=== PATIENT | male | born 1950 | race American Indian/Alaskan Native ===

== ENCOUNTER 2016-09-15 06:28 | Day surgery (SDC) | payer OTHER ==
[~2016-09-15 06:28] MED LIST: TETRACAINE 0.5% OD PRN
--- NOTE | 2016-09-15 07:22 | Anesthesia Day of Surgery ---
Anesthesia Day of Surgery - Day of Surgery Patient Examined: Yes Patient H&P Reviewed: Yes Patient is NPO: Yes
--- NOTE | 2016-09-15 07:23 | Anesthesia Consultation ---
Anesthesia Consult and Med Hx Date of service: 09/15/16 - Airway Anesthetic Teeth Evaluation: Dentures (upper), Partials (lower) ROM Head & Neck: Adequate Mental/Hyoid Distance: Adequate Mallampati Class: Class II Intubation Access Assessment: Probably Good - Pulmonary Exam CTA: Yes - Cardiac Exam Cardiac Exam: RRR - Pre-Operative Health Status ASA Pre-Surgery Classification: ASA3 Proposed Anesthetic Plan: MAC - Pulmonary Hx Smoking: Yes (former, quit in 1972) - Cardiovascular System Hx Hypertension: Yes Hx Peripheral Vascular Disease: Yes - Central Nervous System Hx Seizures: No CVA: No Hx Psychiatric Problems: No - Endocrine Hx Renal Disease: No Hx Liver Disease: No Hx Non-Insulin Dependent Diabetes: Yes Hx Thyroid Disease: No - Other Systems Hx Cancer: No
[2016-09-15] MEDS: MYDRIACYL OD SCH ×3 (07:55→08:05)
[2016-09-15] MEDS: VIGAMOX OD SCH ×3 (07:55→08:05)
[2016-09-15] MEDS: AK-Dilate OD SCH ×3 (07:55→08:05)
[2016-09-15] MEDS ORDERED: SUBLIMAZE ONE (08:17)
[2016-09-15] MEDS ORDERED: VERSED ONE (08:17)
--- NOTE | 2016-09-15 09:16 | Operative Report ---
Operative Report Operative Report: PATIENT'S NAME: DATE OF : DATE OF SURGERY: 09/15/2016 PREOPERATIVE DIAGNOSIS: Cataract right eye POSTOPERATIVE DIAGNOSIS: Same OPERATIVE PROCEDURE: Phacoemulsification with intraocular lens implantation, right eye SURGEON: Laura Weber M.D. 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 An Transportation Supervisor was utilized to regulate the intravenous sedation of the patient so the patient was cooperative yet not asleep in order for the patient to successfully maintain fixation of the eye on the operating light of the microscope. COMPLICATIONS: No surgical complications No blood loss. ALLERGIES: No known drug allergies PROGNOSIS: Excellent INDICATIONS FOR SURGERY: The patient is undergoing surgery in the hopes of eliminating or improving these visual difficulties. PROCEDURE: After arriving at the surgery center, the patient was given topical anesthetic and dilating drops, as noted in the record. The patient was then taken into the operating room and given more anesthetic drops. The eyelids , lashes, and lid margins were scrubbed with Betadine solution, and the patient was draped. The Nurse Transportation Supervisor administered IV sedation and monitored the patient during the procedure. The eye was then fixated with a 0.12, and a stab incision was made in the peripheral clear cornea into the anterior chamber. This was made on my left side. Viscoelastic was next used to fill the anterior chamber. The eye was once again fixated with the 0.12 forceps and a keratome was used make an incision in clear cornea peripherally on my right hand side temporally. The capsule forceps were used to open the central anterior capsule and then make a continuous round capsulotomy. Hydrodissection was carried out utilizing a cannula and balanced salt solution to delineate the cortical material from the capsule and the nucleus from the cortical material. The phaco tip was introduced into the eye and used to remove the anterior cortical material in the area of the capsulotomy. Then the phaco tip was buried into the nucleus, and a chopping instrument was introduced into the eye and used to provide countertraction in the nucleus between this instrument and the phaco tip fracturing the nucleus. This procedure was repeated multiple times, providing multiple small segments of the lens, and then the phaco tip was used to remove each of these segments. An I/A tip was then used to remove the remaining cortex. The anterior chamber was refilled with viscoelastic. An one-piece, acrylic intraocular lens was then placed into an inserting cartridge. The tip of the inserting cartridge was introduced into the keratome incision and into the anterior chamber. The implant was gently advanced through the cartridge and into the eye, where it unfolded, and both haptics were placed in the capsular bag, where it centered nicely and appeared to be well fixated. After placement of the intraocular lens, the I~and~A handpiece was placed back into the eye and used to remove the viscoelastic, including viscoelastic that was behind the optic of the intraocular lens. The anterior chamber was then filled with balanced salt solution, and hydration of the wound was used to cause swelling of the wound and more appropriate watertight closure. When the wound was found to be firm, the patient was asked to comment on how bright the light was. If there was no light perception at all or if the light was substantially dimmer than during the rest of the surgery, the amount of fluid in the eye was decompressed to lower the intraocular pressure until the patient could see the bright light again. This was done to avoid any damage or decreased blood flow to the optic nerve. MEDICATIONS APPLIED AT END OF SURGERY: One drop of Pred Forte and Vigamox The patient was given a shield to wear at night and was instructed not to rub or push on the eye. DISCHARGE SUMMARY: The patient was released in stable condition. The patient and those with the patient were given a written sheet of postoperative instructions and counseling on any abnormal laboratory studies. The patient is to see us tomorrow for follow-up in the office and is to call immediately for any difficulties. Laura Weber M.D. Date
--- NOTE | 2016-09-15 09:18 | Short Stay Summary ---
Short Stay Documentation Date of service: 09/15/16 - History H&P: obtained from office - Allergies and Medications Current Medications: Allergies No Known Allergies Allergy (Unverified 09/13/16 16:37) Active Medications Moxifloxacin HCl (Vigamox) 1 drops OD Q5MIN [facility] Stop: 09/15/16 18:01 Last Admin: 09/15/16 08:05 Dose: 1 drops Phenylephrine HCl (Ak-Dilate) 1 drops OD Q5MIN [facility] Stop: 09/15/16 18:01 Last Admin: 09/15/16 08:05 Dose: 1 drops Prednisolone Acetate (Pred Forte 1%) 1 drops OD QID [facility] Tetracaine HCl (Tetracaine 0.5%) 1 drops OD Q5M PRN PRN Reason: Analgesia Stop: 09/15/16 18:01 Last Admin: 09/15/16 07:55 Dose: 1 drops Tropicamide (Mydriacyl) 1 drops OD Q5MIN [facility] Stop: 09/15/16 18:01 Last Admin: 09/15/16 08:05 Dose: 1 drops - Brief post op/procedure progress note Date of procedure: 09/15/16 Pre-op diagnosis: RIGHT CATARACT Post-op diagnosis: same Procedure: Phacoemulsification with intraocular lens insertion right eye Anesthesia: MAC Surgeon: LUIS CAIN Estimated blood loss: none Pathology: none Condition: stable - Disposition Condition at discharge: Good Disposition: DISCHARGED TO HOME OR SELFCARE - Discharge Diagnoses (1) Cataract Status: Resolved Qualifiers: Cataract type: age-related Age-related cataract type: combined forms Infantile/juvenile cataract type: I Traumatic cataract type: T Complicated cataract type: C Secondary cataract type: S Laterality: right Qualified Code(s): H25.811 - Combined forms of age-related cataract, right eye Short Stay Discharge Plan Follow up with: PRIMARY CARE, [Primary Care Provider] - 7 Days
[2016-09-15] MEDS ORDERED: PRED FORTE 1% OD SCH (10:00)
--- NOTE | 2016-09-15 12:01 | Post Anesthesia Evaluation ---
- Post Anesthesia Evaluation Patient Participated: Yes Airway Patent: Yes Stable Respiratory Function: Yes Nausea/Vomiting: No Temp > 96.8F: Yes Pain Manageable: Yes Adequeate Hydration: Yes Anesthesia Complications: No Block Receding Appropriately: Not Applicable Patient on Ventilator: No
[2016-09-15 14:25] VITALS: BP 148/76
== END 2016-09-15 06:29 | disposition home or self-care (01) ==
LOC: OR 06:28
DX: E11.36 Type 2 diabetes mellitus with diabetic cataract (principal); M19.90 Unspecified osteoarthritis, unspecified site; I10 Essential (primary) hypertension; Z79.84 Long term (current) use of oral hypoglycemic drugs; Z79.899 Other long term (current) drug therapy; Z87.891 Personal history of nicotine dependence; Z86.79 Personal history of other diseases of the circulatory system
CPT/HCPCS: 66984; 82962; J2250; J3010; V2632

== ENCOUNTER 2016-09-29 07:24 | Day surgery (SDC) | payer OTHER ==
[~2016-09-29 07:24] MED LIST changes: -TETRACAINE 0.5% OD PRN; +TETRACAINE 0.5% OS PRN
[2016-09-29] MEDS ORDERED: SUBLIMAZE ONE (09:00)
[2016-09-29] MEDS ORDERED: VERSED ONE (09:00)
--- NOTE | 2016-09-29 09:02 | Anesthesia Consultation ---
Anesthesia Consult and Med Hx Date of service: 09/29/16 - Airway Anesthetic Teeth Evaluation: Dentures, Partials (lower) ROM Head & Neck: Adequate Mental/Hyoid Distance: Adequate Mallampati Class: Class II Intubation Access Assessment: Probably Good - Pulmonary Exam CTA: Yes - Cardiac Exam Cardiac Exam: RRR - Pre-Operative Health Status ASA Pre-Surgery Classification: ASA3 Proposed Anesthetic Plan: General - Pulmonary Hx Smoking: Yes (former, quit in 1970s) Hx Asthma: No Hx Sleep Apnea: No - Cardiovascular System Hx Hypertension: Yes Hx Coronary Artery Disease: No - Central Nervous System Hx Seizures: No CVA: No Hx Psychiatric Problems: No - Endocrine Hx Renal Disease: No Hx Liver Disease: No Hx Insulin Dependent Diabetes: Yes Hx Thyroid Disease: No - Other Systems Hx Cancer: No
--- NOTE | 2016-09-29 09:03 | Anesthesia Day of Surgery ---
Anesthesia Day of Surgery - Day of Surgery Patient Examined: Yes Patient H&P Reviewed: Yes Patient is NPO: Yes Beta Blockers: Yes (this AM)
[2016-09-29] MEDS: MYDRIACYL OS SCH ×3 (09:20→09:35)
[2016-09-29] MEDS: AK-Dilate OS SCH ×3 (09:20→09:36)
[2016-09-29] MEDS: VIGAMOX OS SCH ×3 (09:20→09:35)
[2016-09-29] MEDS ORDERED: NEOFRIN OS SCH (10:00)
--- NOTE | 2016-09-29 10:28 | Operative Report ---
Operative Report Operative Report: PATIENT'S NAME: DATE OF : DATE OF SURGERY: 09/29/2016 PREOPERATIVE DIAGNOSIS: Cataract left eye POSTOPERATIVE DIAGNOSIS: Same OPERATIVE PROCEDURE: Phacoemulsification with intraocular lens implantation, left eye SURGEON: Laura Weber M.D. PRACTICE PERFORMANCE MANAGER SURGEON: Robb Lens: [id number] 21.0 D ANESTHESIA: Monitored anesthesia care in combination with topical and intracameral anesthesia because of the established specific risk of reflux, arrhythmias, or anxiety attacks associated with ocular manipulation, as well as the difficulty of the business performance advisor to manage such potentially catastrophic events while simultaneously attempting to complete the surgical procedure and was deemed necessary for the patient's safety to have an Digital Content Specialist present during the procedure whenever possible. An Digital Content Specialist was utilized to regulate the intravenous sedation of the patient so the patient was cooperative yet not asleep in order for the patient to successfully maintain fixation of the eye on the operating light of the microscope. COMPLICATIONS: No surgical complications No blood loss. ALLERGIES: No known drug allergies PROGNOSIS: Excellent INDICATIONS FOR SURGERY: The patient is undergoing surgery in the hopes of eliminating or improving these visual difficulties. PROCEDURE: After arriving at the surgery center, the patient was given topical anesthetic and dilating drops, as noted in the record. The patient was then taken into the operating room and given more anesthetic drops. The eyelids , lashes, and lid margins were scrubbed with Betadine solution, and the patient was draped. The Nurse Digital Content Specialist administered IV sedation and monitored the patient during the procedure. The eye was then fixated with a 0.12, and a stab incision was made in the peripheral clear cornea into the anterior chamber. This was made on my left side. Viscoelastic was next used to fill the anterior chamber. The eye was once again fixated with the 0.12 forceps and a keratome was used make an incision in clear cornea peripherally on my right hand side temporally. The capsule forceps were used to open the central anterior capsule and then make a continuous round capsulotomy. Hydrodissection was carried out utilizing a cannula and balanced salt solution to delineate the cortical material from the capsule and the nucleus from the cortical material. The phaco tip was introduced into the eye and used to remove the anterior cortical material in the area of the capsulotomy. Then the phaco tip was buried into the nucleus, and a chopping instrument was introduced into the eye and used to provide countertraction in the nucleus between this instrument and the phaco tip fracturing the nucleus. This procedure was repeated multiple times, providing multiple small segments of the lens, and then the phaco tip was used to remove each of these segments. An I/A tip was then used to remove the remaining cortex. The anterior chamber was refilled with viscoelastic. An one-piece, acrylic intraocular lens was then placed into an inserting cartridge. The tip of the inserting cartridge was introduced into the keratome incision and into the anterior chamber. The implant was gently advanced through the cartridge and into the eye, where it unfolded, and both haptics were placed in the capsular bag, where it centered nicely and appeared to be well fixated. After placement of the intraocular lens, the I~and~A handpiece was placed back into the eye and used to remove the viscoelastic, including viscoelastic that was behind the optic of the intraocular lens. The anterior chamber was then filled with balanced salt solution, and hydration of the wound was used to cause swelling of the wound and more appropriate watertight closure. When the wound was found to be firm, the patient was asked to comment on how bright the light was. If there was no light perception at all or if the light was substantially dimmer than during the rest of the surgery, the amount of fluid in the eye was decompressed to lower the intraocular pressure until the patient could see the bright light again. This was done to avoid any damage or decreased blood flow to the optic nerve. MEDICATIONS APPLIED AT END OF SURGERY: One drop of Pred Forte and Vigamox The patient was given a shield to wear at night and was instructed not to rub or push on the eye. DISCHARGE SUMMARY: The patient was released in stable condition. The patient and those with the patient were given a written sheet of postoperative instructions and counseling on any abnormal laboratory studies. The patient is to see us tomorrow for follow-up in the office and is to call immediately for any difficulties. Laura Weber M.D. Date
--- NOTE | 2016-09-29 10:29 | Short Stay Summary ---
Short Stay Documentation Date of service: 09/29/16 - History H&P: obtained from office - Allergies and Medications Current Medications: Allergies No Known Allergies Allergy (Unverified 09/23/16 09:04) Home Medications Medication Instructions Recorded Confirmed Last Taken Type Aspirin [Adult Low Dose Aspirin EC] 81 mg PO DAILY 09/15/16 09/23/16 09/14/16 History Atenolol [Tenormin] 25 mg PO DAILY 09/15/16 09/23/16 09/15/16 History Chlorthalidone 25 mg PO DAILY 09/15/16 09/23/16 09/14/16 History Gabapentin [Gralise] 300 mg PO BID 09/15/16 09/23/16 09/14/16 History Ibuprofen [Motrin 800 MG tab] 800 mg PO Q8H PRN 09/15/16 09/23/16 Unknown History Lovastatin [Altoprev] 40 mg PO DAILY 09/15/16 09/23/16 09/14/16 History Metformin HCl [Glucophage] 1,000 mg PO DAILY 09/15/16 09/23/16 09/14/16 History Saxagliptin HCl [Onglyza] 5 mg PO DAILY 09/15/16 09/23/16 09/14/16 History Verapamil ER [Calan Sr] 240 mg PO DAILY 09/15/16 09/23/16 09/14/16 History glipiZIDE [Glucotrol] 10 mg PO BID 09/15/16 09/23/16 09/14/16 History Active Medications Moxifloxacin HCl (Vigamox) 1 drops OS Q5MIN [facility] Stop: 09/29/16 18:00 Last Admin: 09/29/16 09:35 Dose: 1 drops Phenylephrine HCl (Neofrin) 1 drops OS Q5MIN [facility] Stop: 10/01/16 10:01 Tetracaine HCl (Tetracaine 0.5%) 1 drops OS Q5M PRN PRN Reason: Analgesia Stop: 09/29/16 18:00 Last Admin: 09/29/16 09:19 Dose: 1 drops Tropicamide (Mydriacyl) 1 drops OS Q5MIN [facility] Stop: 09/29/16 18:00 Last Admin: 09/29/16 09:35 Dose: 1 drops - Brief post op/procedure progress note Date of procedure: 09/29/16 Pre-op diagnosis: left cataract Post-op diagnosis: same Procedure: Phacoemulsification with intraocular lens insertion left eye Anesthesia: MAC Surgeon: LUIS CAIN Pathology: none Condition: stable - Disposition Condition at discharge: Good Disposition: DC-01 TO HOME OR SELFCARE - Discharge Diagnoses (1) Floppy iris syndrome Status: Resolved (2) Cataract Status: Resolved Qualifiers: Cataract type: age-related Age-related cataract type: nuclear Infantile/ juvenile cataract type: I Traumatic cataract type: T Complicated cataract type: C Secondary cataract type: S Laterality: left Qualified Code(s): H25.12 - Age-related nuclear cataract, left eye
[2016-09-29 10:43] VITALS: BP 110/70
[2016-09-29] MEDS ORDERED: PRED FORTE 1% OU ONE ×2 (11:00→15:00)
== END 2016-09-29 11:35 | disposition home or self-care (01) ==
LOC: OR 07:24
DX: E11.36 Type 2 diabetes mellitus with diabetic cataract (principal); H21.81 Floppy iris syndrome; M19.90 Unspecified osteoarthritis, unspecified site; I10 Essential (primary) hypertension; Z79.84 Long term (current) use of oral hypoglycemic drugs; Z79.82 Long term (current) use of aspirin; Z79.899 Other long term (current) drug therapy; Z87.891 Personal history of nicotine dependence
CPT/HCPCS: 66984; 82962; J2250; J3010; V2632

== ENCOUNTER 2017-03-20 08:42 | Inpatient (IN) | payer MEDICARE, OTHER ==
[2017-03-20] MEDS ORDERED: NACL 0.9% 1000 ML 1,000 ML IV ONE ×2 (09:19→10:27)
[2017-03-20 09:52] LABS: Basophils % (Auto) 0.6 % (0.0-1.8); Eosinophils % (Auto) 0.4 % (0.0-4.3); Hematocrit 39.5 % (35.5-45.6); Hemoglobin 12.3 gm/dl (11.8-15.2); Mean Corpuscular HGB Conc 31 % (32-34); Mean Corpuscular Hemoglobin 26 pg (28-32); Mean Corpuscular Volume 84 fl (84-94); Platelet Count 198 K/mm3 (140-440); Red Blood Count 4.72 M/mm3 (3.65-5.03); White Blood Count 10.8 K/mm3 (4.5-11.0)
[2017-03-20 10:11] LABS: Albumin/Globulin Ratio 1.6 %; Bilirubin,Total 0.5 mg/dL (0.1-1.2); Calcium 7.5 mg/dL (8.4-10.2); Chloride 101.5 mmol/L (98-107); Magnesium 1.7 mg/dL (1.7-2.3); Total Protein 4.9 g/dL (6.3-8.2)
[2017-03-20 10:26] LABS: Potassium 6.1 mmol/L (3.6-5.0)
[2017-03-20] MEDS ORDERED: SODIUM BICARBONATE IV ONE (10:27)
[2017-03-20] MEDS ORDERED: CALCIUM CHLORIDE IVP ONE (10:28)
[2017-03-20] MEDS ORDERED: D50W (25GM) Syringe IV ONE (10:29)
[2017-03-20] MEDS ORDERED: CALCIUM CHLORIDE 1,000 MG in NACL 0.9% 100 ML IV ONE (11:00)
[2017-03-20 11:33] LABS: INR 1.07 (0.87-1.13)
[2017-03-20 11:34] LABS: Partial Thromboplastin Time 25.7 Sec. (24.2-36.6)
--- NOTE | 2017-03-20 11:36 | XRay Report ---
AP CHEST : 03/20/17 08:42:00 CLINICAL: Hypertension. COMPARISON:None FINDINGS: The heart is normal size.Central vascular congestion and mild bilateral perihilar reticular interstitial opacities. No pulmonary consolidation. The bones and soft tissues are unremarkable. IMPRESSION: Pulmonary venous hypertension and mild bilateral perihilar reticular interstitial opacities which are suggestive of noncardiogenic interstitial pulmonary edema or bilateral perihilar pneumonia.
[2017-03-20 11:41] LABS: Creatine Kinase MB 1.5 ng/mL (0.0-4.0)
[2017-03-20 11:43] LABS: Calcium 7.7 mg/dL (8.4-10.2); Chloride 102.1 mmol/L (98-107)
--- NOTE | 2017-03-20 11:59 | Cat Scan Report ---
CT head without contrast: Mild decreased periventricular white matter change is noted. Mild peripheral atrophy is present. There is a focal area of decreased attenuation in the left parasagittal occipital location. This measures approximately 2.8 cm in size. There is no hemorrhage and no mass effect. No extracerebral collections. The visualized bones and paranasal sinuses are unremarkable. Impressions: 1. 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 2. Senescent changes.
[2017-03-20] MEDS ORDERED: VANCOMYCIN PHARMACY TO DOSE IV SCH (12:00)
--- NOTE | 2017-03-20 12:27 | Emergency Department Report ---
ED General Adult HPI - General Chief complaint: Syncope Stated complaint: LBP Time Seen by Provider: 03/20/17 10:13 Source: patient, family, EMS Mode of arrival: Stretcher Limitations: Physical Limitation - History of Present Illness Initial comments: The patient stated that he was going to the bathroom early a.m. hours passed out. He does not think that he was out for a long period. He was transported via EMS. He was found to be hypotensive at the scene. He was given a volume bolus of 1500 mL per arrival. His blood pressure went from 70 systolic to 80 systolic. However, at the time of my encounter the patient was normotensive. Indeed he was awake and alert and did not have much in the way of active complaints. Patient admitted that he had taken his insulin for at least 24 hours. He states he has been thirsty and urinating frequently. He denied headache chest pain or abdominal pain. He wasn't aware of any fever and did not refer any chills. -: Gradual Associated Symptoms: denies other symptoms - Related Data Home Medications Medication Instructions Recorded Confirmed Last Taken Aspirin [Adult Low Dose Aspirin EC] 81 mg PO DAILY 09/15/16 03/20/17 03/19/17 Atenolol [Tenormin] 25 mg PO DAILY 09/15/16 03/20/17 03/19/17 Chlorthalidone 25 mg PO DAILY 09/15/16 03/20/17 03/19/17 Gabapentin [Gralise] 300 mg PO DAILY 09/15/16 03/20/17 03/19/17 Ibuprofen [Motrin 800 MG tab] 800 mg PO Q8H PRN 09/15/16 03/20/17 03/19/17 Lovastatin [Altoprev] 40 mg PO DAILY 09/15/16 03/20/17 03/19/17 Metformin HCl [Glucophage] 1,000 mg PO BID 09/15/16 03/20/17 03/19/17 Saxagliptin HCl [Onglyza] 5 mg PO DAILY 09/15/16 03/20/17 03/19/17 Verapamil ER [Calan Sr] 240 mg PO DAILY 09/15/16 03/20/17 03/19/17 glipiZIDE [Glucotrol] 10 mg PO BID 09/15/16 03/20/17 03/19/17 Losartan [Cozaar] 100 mg PO QDAY 03/20/17 03/20/17 03/19/17 Allergies Allergy/AdvReac Type Severity Reaction Status Date / Time No Known Allergies Allergy Unverified 09/23/16 09:04 ED Review of Systems ROS: Stated complaint: LBP Other details as noted in HPI Constitutional: denies: chills, fever Eyes: denies: eye pain, eye discharge, vision change ENT: denies: ear pain, throat pain Respiratory: denies: cough, shortness of breath, wheezing Cardiovascular: syncope. denies: chest pain, palpitations Endocrine: see HPI Gastrointestinal: denies: abdominal pain, nausea, diarrhea Genitourinary: denies: urgency, dysuria Musculoskeletal: denies: back pain, joint swelling, arthralgia Skin: denies: rash, lesions Neurological: denies: headache, weakness, paresthesias Psychiatric: denies: anxiety, depression Hematological/Lymphatic: denies: easy bleeding, easy bruising ED Past Medical Hx - Past Medical History Hx Liver Disease: No Hx Renal Disease: No Hx Seizures: No Hx Asthma: No - Social History Smoking Status: Unknown if ever smoked Substance Use Type: None (none known) - Medications Home Medications: Home Medications Medication Instructions Recorded Confirmed Last Taken Type Aspirin [Adult Low Dose Aspirin EC] 81 mg PO DAILY 09/15/16 03/20/17 03/19/17 History Atenolol [Tenormin] 25 mg PO DAILY 09/15/16 03/20/17 03/19/17 History Chlorthalidone 25 mg PO DAILY 09/15/16 03/20/17 03/19/17 History Gabapentin [Gralise] 300 mg PO DAILY 09/15/16 03/20/17 03/19/17 History Ibuprofen [Motrin 800 MG tab] 800 mg PO Q8H PRN 09/15/16 03/20/17 03/19/17 History Lovastatin [Altoprev] 40 mg PO DAILY 09/15/16 03/20/17 03/19/17 History Metformin HCl [Glucophage] 1,000 mg PO BID 09/15/16 03/20/17 03/19/17 History Saxagliptin HCl [Onglyza] 5 mg PO DAILY 09/15/16 03/20/17 03/19/17 History Verapamil ER [Calan Sr] 240 mg PO DAILY 09/15/16 03/20/17 03/19/17 History glipiZIDE [Glucotrol] 10 mg PO BID 09/15/16 03/20/17 03/19/17 History Losartan [Cozaar] 100 mg PO QDAY 03/20/17 03/20/17 03/19/17 History ED Physical Exam - General Limitations: Physical Limitation General appearance: alert, in no apparent distress - Head Head exam: Present: atraumatic, normocephalic - Eye Eye exam: Present: normal appearance. Absent: scleral icterus - ENT ENT exam: Present: mucous membranes dry - Neck Neck exam: Present: normal inspection. Absent: tenderness, meningismus - Respiratory Respiratory exam: Present: normal lung sounds bilaterally. Absent: respiratory distress - Cardiovascular Cardiovascular Exam: Present: regular rate, normal rhythm. Absent: systolic murmur, diastolic murmur, rubs, gallop - GI/Abdominal GI/Abdominal exam: Present: soft, normal bowel sounds. Absent: distended, tenderness, guarding, rebound, rigid - Rectal Rectal exam: Present: deferred - Extremities Exam Extremities exam: Present: normal inspection - Back Exam Back exam: Present: normal inspection - Neurological Exam Neurological exam: Present: alert, oriented X3, CN II-XII intact. Absent: motor sensory deficit - Psychiatric Psychiatric exam: Present: normal affect, normal mood - Skin Skin exam: Present: warm, dry, intact, normal color. Absent: rash ED Course Vital Signs 03/20/17 03/20/17 03/20/17 09:10 09:15 09:31 Temperature Pulse Rate 61 60 59 L Respiratory 19 14 19 Rate Blood Pressure 67/46 67/46 Blood Pressure [Left] O2 Sat by Pulse Oximetry 03/20/17 03/20/17 03/20/17 09:45 10:01 10:15 Temperature Pulse Rate 57 L 54 L 54 L Respiratory 16 18 11 L Rate Blood Pressure 67/46 85/46 85/46 Blood Pressure [Left] O2 Sat by Pulse Oximetry 03/20/17 03/20/17 03/20/17 10:31 10:45 11:01 Temperature Pulse Rate 51 L 52 L 52 L Respiratory 14 15 21 Rate Blood Pressure 95/56 95/56 94/64 Blood Pressure [Left] O2 Sat by Pulse Oximetry 03/20/17 03/20/17 03/20/17 11:15 11:17 11:18 Temperature 95 F L Pulse Rate 52 L 54 L Respiratory 21 21 21 Rate Blood Pressure 94/64 Blood Pressure 94/64 [Left] O2 Sat by Pulse 98 98 Oximetry 03/20/17 03/20/17 03/20/17 11:49 12:00 12:15 Temperature Pulse Rate 63 54 L 58 L Respiratory 24 17 14 Rate Blood Pressure 94/64 107/58 107/58 Blood Pressure [Left] O2 Sat by Pulse Oximetry 03/20/17 03/20/17 03/20/17 12:31 13:09 13:15 Temperature Pulse Rate 58 L 64 64 Respiratory 13 17 13 Rate Blood Pressure 107/58 107/58 107/58 Blood Pressure [Left] O2 Sat by Pulse 100 Oximetry 03/20/17 03/20/17 13:30 16:09 Temperature 98.0 F 98.0 F Pulse Rate 65 86 Respiratory 13 17 Rate Blood Pressure 117/68 Blood Pressure 111/66 [Left] O2 Sat by Pulse 100 99 Oximetry - Reevaluation(s) Reevaluation #1: Patient was found to be hyperkalemic and acidotic. He looks like he perhaps had a mixed picture of lactic acidosis in DKA. Initially I gave him some IV insulin and calcium as he was found in a junctional rhythm. Additional laboratory database suggested that the patient was indeed in DKA. He was placed on an insulin drip. He was given IV fluid. He remained stable hemodynamically. Multiple reexaminations were conducted and the patient continued to look good. He was admitted to the intensive care status still holding in the emergency department by the hospitalist with consult to the surgical nurse practitioner who is seeing the patient at this time. He was given empiric antibiotics. 03/20/17 18:50 ED Medical Decision Making - Lab Data Result diagrams: 03/20/17 09:39 03/20/17 17:38 Laboratory Results - last 24 hr 03/20/17 03/20/17 03/20/17 09:39 09:39 09:43 WBC 10.8 RBC 4.72 Hgb 12.3 Hct 39.5 MCV 84 MCH 26 L MCHC 31 L RDW 14.0 Plt Count 198 Lymph % (Auto) 15.3 Reagan % (Auto) 6.6 Eos % (Auto) 0.4 Baso % (Auto) 0.6 Lymph # 1.7 Reagan # 0.7 Eos # 0.0 Baso # 0.1 Seg Neutrophils % 77.1 H Seg Neutrophils # 8.4 H Sodium 133 L Chloride 101.5 Carbon Dioxide 18 L Anion Gap 20 BUN 18 Creatinine 1.7 H Estimated GFR 49 BUN/Creatinine Ratio 11 Glucose 457 H POC Glucose 402 H Calcium 7.5 L Magnesium 1.70 Total Bilirubin 0.50 AST 37 ALT 48 Alkaline Phosphatase 54 Total Protein 4.9 L Albumin 3.0 L Albumin/Globulin Ratio 1.6 6.1 Laboratory Results - last 24 hr 03/20/17 03/20/17 03/20/17 09:38 09:38 09:38 WBC RBC Hgb Hct MCV MCH MCHC RDW Plt Count Lymph % (Auto) Reagan % (Auto) Eos % (Auto) Baso % (Auto) Lymph # Reagan # Eos # Baso # Seg Neutrophils % Seg Neutrophils # PT INR APTT VBG pH Sodium Potassium Chloride Carbon Dioxide Anion Gap BUN Creatinine Estimated GFR BUN/Creatinine Ratio Glucose POC Glucose Ketones Quantitative Lactic Acid 3.80 H* Calcium Phosphorus Magnesium Total Bilirubin AST ALT Alkaline Phosphatase Ammonia Total Creatine Kinase CK-MB (CK-2) CK-MB (CK-2) Rel Index Troponin T NT-Pro-B Natriuret Pep Total Protein Albumin Albumin/Globulin Ratio Lipase TSH 1.930 Urine Color Urine Turbidity Urine pH Ur Specific [place] Urine Protein Urine Glucose (UA) Urine Ketones Urine Blood Urine Nitrite Urine Bilirubin Urine Urobilinogen Ur Leukocyte Esterase Urine WBC (Auto) Urine RBC (Auto) U Epithel Cells (Auto) Urine Mucus Salicylates < 0.3 L Urine Opiates Screen Urine Methadone Screen Ur Barbiturates Screen Ur Phencyclidine Scrn Ur Amphetamines Screen U Benzodiazepines Scrn Urine Cocaine Screen U Marijuana (THC) Screen Drugs of Abuse Note Plasma/Serum Alcohol 03/20/17 03/20/17 03/20/17 09:39 09:39 09:39 WBC 10.8 RBC 4.72 Hgb 12.3 Hct 39.5 MCV 84 MCH 26 L MCHC 31 L RDW 14.0 Plt Count 198 Lymph % (Auto) 15.3 Reagan % (Auto) 6.6 Eos % (Auto) 0.4 Baso % (Auto) 0.6 Lymph # 1.7 Reagan # 0.7 Eos # 0.0 Baso # 0.1 Seg Neutrophils % 77.1 H Seg Neutrophils # 8.4 H PT INR APTT VBG pH Sodium 133 L Potassium 6.1 H* Chloride 101.5 Carbon Dioxide 18 L Anion Gap 20 BUN 18 Creatinine 1.7 H Estimated GFR 49 BUN/Creatinine Ratio 11 Glucose 457 H POC Glucose Ketones Quantitative Lactic Acid Calcium 7.5 L Phosphorus Magnesium 1.70 Total Bilirubin 0.50 AST 37 ALT 48 Alkaline Phosphatase 54 Ammonia Total Creatine Kinase CK-MB (CK-2) CK-MB (CK-2) Rel Index Troponin T NT-Pro-B Natriuret Pep Total Protein 4.9 L Albumin 3.0 L Albumin/Globulin Ratio 1.6 Lipase TSH Urine Color Urine Turbidity Urine pH Ur Specific [place] Urine Protein Urine Glucose (UA) Urine Ketones Urine Blood Urine Nitrite Urine Bilirubin Urine Urobilinogen Ur Leukocyte Esterase Urine WBC (Auto) Urine RBC (Auto) U Epithel Cells (Auto) Urine Mucus Salicylates Urine Opiates Screen Urine Methadone Screen Ur Barbiturates Screen Ur Phencyclidine Scrn Ur Amphetamines Screen U Benzodiazepines Scrn Urine Cocaine Screen U Marijuana (THC) Screen Drugs of Abuse Note Plasma/Serum Alcohol < 0.01 03/20/17 03/20/17 03/20/17 09:43 10:55 10:55 WBC RBC Hgb Hct MCV MCH MCHC RDW Plt Count Lymph % (Auto) Reagan % (Auto) Eos % (Auto) Baso % (Auto) Lymph # Reagan # Eos # Baso # Seg Neutrophils % Seg Neutrophils # PT INR APTT VBG pH 7.194 L* Sodium Potassium Chloride Carbon Dioxide Anion Gap BUN Creatinine Estimated GFR BUN/Creatinine Ratio Glucose POC Glucose 402 H Ketones Quantitative Small Lactic Acid Calcium Phosphorus Magnesium Total Bilirubin AST ALT Alkaline Phosphatase Ammonia Total Creatine Kinase CK-MB (CK-2) CK-MB (CK-2) Rel Index Troponin T NT-Pro-B Natriuret Pep Total Protein Albumin Albumin/Globulin Ratio Lipase TSH Urine Color Urine Turbidity Urine pH Ur Specific [place] Urine Protein Urine Glucose (UA) Urine Ketones Urine Blood Urine Nitrite Urine Bilirubin Urine Urobilinogen Ur Leukocyte Esterase Urine WBC (Auto) Urine RBC (Auto) U Epithel Cells (Auto) Urine Mucus Salicylates Urine Opiates Screen Urine Methadone Screen Ur Barbiturates Screen Ur Phencyclidine Scrn Ur Amphetamines Screen U Benzodiazepines Scrn Urine Cocaine Screen U Marijuana (THC) Screen Drugs of Abuse Note Plasma/Serum Alcohol 03/20/17 03/20/17 03/20/17 10:55 10:55 10:55 WBC RBC Hgb Hct MCV MCH MCHC RDW Plt Count Lymph % (Auto) Reagan % (Auto) Eos % (Auto) Baso % (Auto) Lymph # Reagan # Eos # Baso # Seg Neutrophils % Seg Neutrophils # PT 14.4 INR 1.07 APTT 25.7 VBG pH Sodium 137 Potassium 5.0 Chloride 102.1 Carbon Dioxide 18 L Anion Gap 22 BUN 19 Creatinine 1.5 Estimated GFR 56 BUN/Creatinine Ratio 13 Glucose 417 H POC Glucose Ketones Quantitative Lactic Acid Calcium 7.7 L Phosphorus Magnesium Total Bilirubin AST ALT Alkaline Phosphatase Ammonia Total Creatine Kinase 104 CK-MB (CK-2) 1.5 CK-MB (CK-2) Rel Index 1.4 Troponin T NT-Pro-B Natriuret Pep 59.79 Total Protein Albumin Albumin/Globulin Ratio Lipase TSH Urine Color Urine Turbidity Urine pH Ur Specific [place] Urine Protein Urine Glucose (UA) Urine Ketones Urine Blood Urine Nitrite Urine Bilirubin Urine Urobilinogen Ur Leukocyte Esterase Urine WBC (Auto) Urine RBC (Auto) U Epithel Cells (Auto) Urine Mucus Salicylates Urine Opiates Screen Urine Methadone Screen Ur Barbiturates Screen Ur Phencyclidine Scrn Ur Amphetamines Screen U Benzodiazepines Scrn Urine Cocaine Screen U Marijuana (THC) Screen Drugs of Abuse Note Plasma/Serum Alcohol 03/20/17 03/20/17 03/20/17 10:55 10:55 10:55 WBC RBC Hgb Hct MCV MCH MCHC RDW Plt Count Lymph % (Auto) Reagan % (Auto) Eos % (Auto) Baso % (Auto) Lymph # [place] # Eos # Baso # Seg Neutrophils % Seg Neutrophils # PT INR APTT VBG pH Sodium Potassium Chloride Carbon Dioxide Anion Gap BUN Creatinine Estimated GFR BUN/Creatinine Ratio Glucose POC Glucose Ketones Quantitative Lactic Acid Calcium Phosphorus 2.80 Magnesium 1.70 Total Bilirubin AST ALT Alkaline Phosphatase Ammonia 19.0 L Total Creatine Kinase CK-MB (CK-2) CK-MB (CK-2) Rel Index Troponin T < 0.010 NT-Pro-B Natriuret Pep Total Protein Albumin Albumin/Globulin Ratio Lipase TSH Urine Color Urine Turbidity Urine pH Ur Specific [place] Urine Protein Urine Glucose (UA) Urine Ketones Urine Blood Urine Nitrite Urine Bilirubin Urine Urobilinogen Ur Leukocyte Esterase Urine WBC (Auto) Urine RBC (Auto) U Epithel Cells (Auto) Urine Mucus Salicylates Urine Opiates Screen Urine Methadone Screen Ur Barbiturates Screen Ur Phencyclidine Scrn Ur Amphetamines Screen U Benzodiazepines Scrn Urine Cocaine Screen U Marijuana (THC) Screen Drugs of Abuse Note Plasma/Serum Alcohol 03/20/17 03/20/17 03/20/17 11:08 11:56 11:56 WBC RBC Hgb Hct MCV MCH MCHC RDW Plt Count Lymph % (Auto) [place] % (Auto) Eos % (Auto) Baso % (Auto) Lymph # [place] # Eos # Baso # Seg Neutrophils % Seg Neutrophils # PT INR APTT VBG pH Sodium Potassium Chloride Carbon Dioxide Anion Gap BUN Creatinine Estimated GFR BUN/Creatinine Ratio Glucose POC Glucose Ketones Quantitative Lactic Acid Calcium Phosphorus Magnesium Total Bilirubin AST ALT Alkaline Phosphatase Ammonia Total Creatine Kinase CK-MB (CK-2) CK-MB (CK-2) Rel Index Troponin T NT-Pro-B Natriuret Pep Total Protein Albumin Albumin/Globulin Ratio Lipase 36 TSH Urine Color Yellow Urine Turbidity Clear Urine pH 5.0 Ur Specific [place] 1.017 Urine Protein <15 mg/dl Urine Glucose (UA) >=500 Urine Ketones Tr Urine Blood Neg Urine Nitrite Neg Urine Bilirubin Neg Urine Urobilinogen < 2.0 Ur Leukocyte Esterase Neg Urine WBC (Auto) 1.0 Urine RBC (Auto) 3.0 U Epithel Cells (Auto) < 1.0 Urine Mucus Few Salicylates Urine Opiates Screen Presumptive negative Urine Methadone Screen Presumptive negative Ur Barbiturates Screen Presumptive negative Ur Phencyclidine Scrn Presumptive negative Ur Amphetamines Screen Presumptive negative U Benzodiazepines Scrn Presumptive negative Urine Cocaine Screen Presumptive negative U Marijuana (THC) Screen Presumptive negative Drugs of Abuse Note Disclamer Plasma/Serum Alcohol - EKG Data -: EKG Interpreted by Ok - EKG Data Interpretation: other (junctional bradycardia no STEMI) Critical Care Time: Yes Critical care time in (mins) excluding proc time.: 90 Critical care attestation.: If time is entered above; I have spent that time in minutes in the direct care of this critically ill patient, excluding procedure time. ED Disposition Clinical Impression: Lactic acidosis, Junctional bradycardia, Hyperkalemia DKA (diabetic ketoacidoses) Qualifiers: Diabetes mellitus type: type 1 Diabetes mellitus complication detail: without coma Qualified Code(s): E10.10 - Type 1 diabetes mellitus with ketoacidosis without coma Hypotension Qualifiers: Hypotension type: unspecified hypotension type Qualified Code(s): I95.9 - Hypotension, unspecified Disposition: DC-09 OP ADMIT IP TO THIS HOSP Is pt being admited?: Yes Does the pt Need Aspirin: Yes Condition: Stable Instructions: Diabetic Ketoacidosis (ED) Referrals: PRIMARY CARE, [Primary Care Provider] - 3-5 Days Time of Disposition: 18:56
[2017-03-20 12:29] LABS: Urine Drugs of Abuse Note Disclamer
[2017-03-20] MEDS ORDERED: ZOSYN/NS 3.375GM/50ML 3.375 GM/50 ML BAG IV ONE (12:30)
[2017-03-20 12:47] LABS: Bilirubin,Urine NEG (Negative); Blood,Urine NEG (Negative); Ketones,Urine TR mg/dL (Negative); Leukocyte Esterase,Urine NEG (Negative); Mucus,Urine FEW /HPF; Nitrite,Urine NEG (Negative); Protein,Urine <15 mg/dL mg/dL (Negative); Urobilinogen,Urine < 2.0 mg/dL (<2.0)
[2017-03-20] MEDS: VANCOMYCIN/NS 1 GM/250 ML 1 GM/250 ML BAG IV SCH (13:00)
--- NOTE | 2017-03-20 13:08 | Cat Scan Report ---
CT abdomen and pelvis without contrast: Back pain, sepsis. Transverse images are obtained from the lower chest to the ischium with coronal and sagittal 2-D reformatted images. No oral nor IV contrast administered. The visualized lung bases are unremarkable. Coronary vascular calcifications are noted. There is a 1 cm left hepatic lobe cyst. The gallbladder is somewhat inhomogeneous and may contain sludge. No obvious calculus. The abdominal organs are not otherwise remarkable. There is a 15 mm dense calcification in the upper pole of the right kidney. There is perinephric stranding bilaterally. The urinary tract is not otherwise remarkable. The abdominal aorta is heavily calcified but normal in size and contour. No mesenteric or girish-aortic adenopathy identified. The nonopacified small bowel and colon appear unremarkable for any inflammatory or neoplastic changes. There is diverticulosis involving the distal and sigmoid portions of the colon. The appendix if present is not visualized. No destructive bony lesions are noted. Degenerative L4-5 apophyseal joint changes are present. Impressions: 1. Nonobstructing left renal calculus. Nonspecific perinephric stranding bilaterally. 2. Probable gallbladder sludge. 3. Distal colonic diverticulosis. 4. Vascular atherosclerosis.
[2017-03-20] MEDS ORDERED: D50W (25GM) Syringe IV PRN (13:36)
[2017-03-20] MEDS ORDERED: NovoLIN R 100 UNITS in NACL 0.9% 99 ML IV SCH (14:00)
[2017-03-20 14:39] LABS: Calcium 8.6 mg/dL (8.4-10.2); Chloride 105.2 mmol/L (98-107); Potassium 5.2 mmol/L (3.6-5.0)
[2017-03-20 15:17] LABS: Magnesium 1.7 mg/dL (1.7-2.3); Phosphorous 2.5 mg/dL (2.5-4.5)
[2017-03-20 16:21] LABS: Calcium 8.6 mg/dL (8.4-10.2); Chloride 104.6 mmol/L (98-107); Potassium 4.9 mmol/L (3.6-5.0)
[2017-03-20] MEDS ORDERED: DULCOLAX PR PRN (16:43)
[2017-03-20] MEDS ORDERED: MORPHINE IV PRN (16:43)
[2017-03-20] MEDS ORDERED: TYLENOL PO PRN (16:43)
[2017-03-20] MEDS ORDERED: MILK OF MAGNESIA PO PRN (16:43)
[2017-03-20] MEDS ORDERED: ZOFRAN IV PRN (16:43)
--- NOTE | 2017-03-20 16:45 | History and Physical Report ---
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 Who is admitted for generalized weakness and hyperglycemia. She complains complaining of generalized weakness, fatigue, malaise. Per his girlfriend he had a cough for the past 1-2 weeks. But it was dry and nonproductive. He is forgetful and doesn't quite remember what's going on. Patient denies fevers. Denies sick contacts. Found to be hypothermic in the emergency room Past History Past Medical History: diabetes, hypertension, stroke (with residual loss of R peripheral vision), other (senile dementia- forgetfulness) Past Surgical History: cataract removal (bilateral) Social history: smoking (former, quit in 1972) Family history: diabetes, hypertension Medications and Allergies Allergies Allergy/AdvReac Type Severity Reaction Status Date / Time piperacillin [From Zosyn] Allergy Itching Verified 03/21/17 17:18 tazobactam [From Zosyn] Allergy Itching Verified 03/21/17 17:18 Home Medications Medication Instructions Recorded Confirmed Last Taken Type Aspirin [Adult Low Dose Aspirin EC] 81 mg PO DAILY 09/15/16 03/20/17 03/19/17 History Atenolol [Tenormin] 25 mg PO DAILY 09/15/16 03/20/17 03/19/17 History Chlorthalidone 25 mg PO DAILY 09/15/16 03/20/17 03/19/17 History Gabapentin [Gralise] 300 mg PO DAILY 09/15/16 03/20/17 03/19/17 History Ibuprofen [Motrin 800 MG tab] 800 mg PO Q8H PRN 09/15/16 03/20/17 03/19/17 History Lovastatin [Altoprev] 40 mg PO DAILY 09/15/16 03/20/17 03/19/17 History Metformin HCl [Glucophage] 1,000 mg PO BID 09/15/16 03/20/17 03/19/17 History Saxagliptin HCl [Onglyza] 5 mg PO DAILY 09/15/16 03/20/17 03/19/17 History Verapamil ER [Calan SR] 240 mg PO DAILY 09/15/16 03/20/17 03/19/17 History glipiZIDE [Glucotrol] 10 mg PO BID 09/15/16 03/20/17 03/19/17 History Losartan [Cozaar] 100 mg PO QDAY 03/20/17 03/20/17 03/19/17 History Levofloxacin [Levaquin TAB] 750 mg PO Q24H #2 tablet 03/24/17 Unknown Rx Active Meds: Active Medications Aspirin (Halfprin Ec) 81 mg PO DAILY JUANY Dextrose (D50w (25gm) Syringe) 0 ml IV ONCE PRN PRN Reason: Hypoglycemia Vancomycin HCl (Vancomycin/Ns 1 Gm/250 Ml) 1 gm in 250 mls @ 125 mls/hr IV Q24H JUANY Last Admin: 03/20/17 13:00 Dose: 125 mls/hr Insulin Human Regular 100 (units/ Sodium Chloride) 100 mls @ 1 mls/hr IV TITR JUANY; 1 UNITS/HR PRN Reason: Protocol Levofloxacin/Dextrose (Levaquin 750mg/150ml) 750 mg in 150 mls @ 100 mls/hr IV Q24HR JUANY PRN Reason: Protocol Sodium Chloride (Nacl 0.9% 1000 Ml) 1,000 mls @ 125 mls/hr IV DIRECT JUANY Miscellaneous Medication (Gabapentin [Gralise]) 300 mg PO DAILY JUANY Miscellaneous Medication (Lovastatin [Altoprev]) 40 mg PO DAILY JUANY Vancomycin HCl (Vancomycin Pharmacy To Dose) 1 each IV PKCONSULT JUANY PRN Reason: Protocol Review of Systems Constitutional: anorexia, fatigue, malaise, lethargy, no fever Respiratory: cough, no shortness of breath, no dyspnea on exertion Exam - Constitutional Vitals: Temp Pulse Resp BP Pulse Ox 98.0 F 86 17 111/66 99 03/20/17 16:09 03/20/17 16:09 03/20/17 16:09 03/20/17 16:09 03/20/17 16:09 General appearance: Present: no acute distress, well-nourished - EENT Eyes: Present: PERRL ENT: hearing intact, clear oral mucosa - Neck Neck: Present: supple, normal ROM - Respiratory Respiratory effort: normal Respiratory: bilateral: CTA - Cardiovascular Heart Sounds: Present: S1 & S2. Absent: rub, click - Extremities Extremities: pulses symmetrical, No edema Peripheral Pulses: within normal limits - Abdominal General gastrointestinal: Present: soft, non-tender, non-distended, normal bowel sounds Male genitourinary: Present: normal - Integumentary Integumentary: Present: clear, warm, dry - Musculoskeletal Musculoskeletal: gait normal, strength equal bilaterally - Psychiatric Psychiatric: appropriate mood/affect, intact judgment & insight - Neurologic Neurologic: CNII-XII intact, moves all extremities Results - Labs CBC & Chem 7: 03/21/17 04:01 03/21/17 13:27 Labs: Laboratory Last Values WBC 10.8 K/mm3 (4.5-11.0) 03/20/17 09:39 RBC 4.72 M/mm3 (3.65-5.03) 03/20/17 09:39 Hgb 12.3 gm/dl (11.8-15.2) 03/20/17 09:39 Hct 39.5 % (35.5-45.6) 03/20/17 09:39 MCV 84 fl (84-94) 03/20/17 09:39 MCH 26 pg (28-32) L 03/20/17 09:39 MCHC 31 % (32-34) L 03/20/17 09:39 RDW 14.0 % (13.2-15.2) 03/20/17 09:39 Plt Count 198 K/mm3 (140-440) 03/20/17 09:39 Lymph % (Auto) 15.3 % (13.4-35.0) 03/20/17 09:39 [place] % (Auto) 6.6 % (0.0-7.3) 03/20/17 09:39 Eos % (Auto) 0.4 % (0.0-4.3) 03/20/17 09:39 Baso % (Auto) 0.6 % (0.0-1.8) 03/20/17 09:39 Lymph # 1.7 K/mm3 (1.2-5.4) 03/20/17 09:39 [place] # 0.7 K/mm3 (0.0-0.8) 03/20/17 09:39 Eos # 0.0 K/mm3 (0.0-0.4) 03/20/17 09:39 Baso # 0.1 K/mm3 (0.0-0.1) 03/20/17 09:39 Seg Neutrophils % 77.1 % (40.0-70.0) H 03/20/17 09:39 Seg Neutrophils # 8.4 K/mm3 (1.8-7.7) H 03/20/17 09:39 PT 14.4 Sec. (12.2-14.9) 03/20/17 10:55 INR 1.07 (0.87-1.13) 03/20/17 10:55 APTT 25.7 Sec. (24.2-36.6) 03/20/17 10:55 VBG pH 7.194 (7.320-7.420) L* 03/20/17 10:55 Sodium 137 mmol/L (137-145) 03/20/17 15:47 Potassium 4.9 mmol/L (3.6-5.0) 03/20/17 15:47 Chloride 104.6 mmol/L (98-107) 03/20/17 15:47 Carbon Dioxide 17 mmol/L (22-30) L 03/20/17 15:47 Anion Gap 20 mmol/L 03/20/17 15:47 BUN 21 mg/dL (9-20) H 03/20/17 15:47 Creatinine 1.5 mg/dL (0.8-1.5) 03/20/17 15:47 Estimated GFR 56 ml/min 03/20/17 15:47 BUN/Creatinine Ratio 14 % 03/20/17 15:47 Glucose 283 mg/dL (75-100) H 03/20/17 15:47 POC Glucose 402 (70-105) H 03/20/17 09:43 Ketones Quantitative Small (Negative) 03/20/17 10:55 Lactic Acid 3.80 mmol/L (0.7-2.0) H* 03/20/17 09:38 Calcium 8.6 mg/dL (8.4-10.2) 03/20/17 15:47 Phosphorus 2.50 mg/dL (2.5-4.5) 03/20/17 13:00 Magnesium 1.70 mg/dL (1.7-2.3) 03/20/17 13:00 Total Bilirubin 0.50 mg/dL (0.1-1.2) 03/20/17 09:39 AST 37 units/L (5-40) 03/20/17 09:39 ALT 48 units/L (7-56) 03/20/17 09:39 Alkaline Phosphatase 54 units/L (35-129) 03/20/17 09:39 Ammonia 19.0 umol/L (25-60) L 03/20/17 10:55 Total Creatine Kinase 104 units/L (55-170) 03/20/17 10:55 CK-MB (CK-2) 1.5 ng/mL (0.0-4.0) 03/20/17 10:55 CK-MB (CK-2) Rel Index 1.4 (0-4) 03/20/17 10:55 Troponin T < 0.010 ng/mL (0.00-0.029) 03/20/17 10:55 NT-Pro-B Natriuret Pep 59.79 pg/mL (0-900) 03/20/17 10:55 Total Protein 4.9 g/dL (6.3-8.2) L 03/20/17 09:39 Albumin 3.0 g/dL (3.9-5) L 03/20/17 09:39 Albumin/Globulin Ratio 1.6 % 03/20/17 09:39 Lipase 36 units/L (13-60) 03/20/17 11:08 TSH 1.930 mlU/mL (0.270-4.200) 03/20/17 09:38 Urine Color Yellow (Yellow) 03/20/17 11:56 Urine Turbidity Clear (Clear) 03/20/17 11:56 Urine pH 5.0 (5.0-7.0) 03/20/17 11:56 Ur Specific [place] 1.017 (1.003-1.030) 03/20/17 11:56 Urine Protein <15 mg/dl mg/dL (Negative) 03/20/17 11:56 Urine Glucose (UA) >=500 mg/dL (Negative) 03/20/17 11:56 Urine Ketones Tr mg/dL (Negative) 03/20/17 11:56 Urine Blood Neg (Negative) 03/20/17 11:56 Urine Nitrite Neg (Negative) 03/20/17 11:56 Urine Bilirubin Neg (Negative) 03/20/17 11:56 Urine Urobilinogen < 2.0 mg/dL (<2.0) 03/20/17 11:56 Ur Leukocyte Esterase Neg (Negative) 03/20/17 11:56 Urine WBC (Auto) 1.0 /HPF (0.0-6.0) 03/20/17 11:56 Urine RBC (Auto) 3.0 /HPF (0.0-6.0) 03/20/17 11:56 U Epithel Cells (Auto) < 1.0 /HPF (0-13.0) 03/20/17 11:56 Urine Mucus Few /HPF 03/20/17 11:56 Salicylates < 0.3 mg/dL (2.8-20.0) L 03/20/17 09:38 Urine Opiates Screen Presumptive negative 03/20/17 11:56 Urine Methadone Screen Presumptive negative 03/20/17 11:56 Ur Barbiturates Screen Presumptive negative 03/20/17 11:56 Ur Phencyclidine Scrn Presumptive negative 03/20/17 11:56 Ur Amphetamines Screen Presumptive negative 03/20/17 11:56 U Benzodiazepines Scrn Presumptive negative 03/20/17 11:56 Urine Cocaine Screen Presumptive negative 03/20/17 11:56 U Marijuana (THC) Screen Presumptive negative 03/20/17 11:56 Drugs of Abuse Note Disclamer 03/20/17 11:56 Plasma/Serum Alcohol < 0.01 gm% (0-0.07) 03/20/17 09:39 - Imaging and Cardiology Chest x-ray: image reviewed (perihilar infiltrates) CT Scan - head: image reviewed (no acute findings) Assessment and Plan Assessment and plan: 66-year-old man was admitted to the hospital for sepsis due to pneumonia. Sepsis/pneumonia Characterized by hypothermia and tachycardia Continue sepsis protocol, antibiotics as ordered DKA Continue insulin drip and IV fluids Mixed acidosis Patient has a mixed acidosis with lactic acidosis and DKA. Treat both underlying causes as highlighted above senile dementia supportive care, frequent re-orientation The high probability of a clinically significant, sudden or life threatening deterioration of the [endocrine, pulmonology] system(s) required my full and direct attention, intervention and personal management. The aggregate critical care time was [33] minutes. This time is in addition to time spent performing reported procedures but includes the following: [] Data Review and interpretation [] Patient assessment and monitoring of vital signs [] Documentation [] Medication orders and management Plan of care discussed with patient/family: Yes
[2017-03-20] MEDS ORDERED: NACL 0.9% 1000 ML 1,000 ML IV SCH (17:00)
[2017-03-20 18:07] LABS: Calcium 8.5 mg/dL (8.4-10.2); Chloride 104.6 mmol/L (98-107); Potassium 4.5 mmol/L (3.6-5.0)
--- NOTE | 2017-03-20 18:26 | Consultation ---
History of Present Illness Consult date: 03/20/17 Requesting physician: ESTEPHANIA WALTON Reason for consult: other (DKA) History of present illness: PULMONARY/CCM CONSULT NOTE (Full dictation # [id number]) Please see dictated notes for full details Medications and Allergies Allergies Allergy/AdvReac Type Severity Reaction Status Date / Time No Known Allergies Allergy Unverified 09/23/16 09:04 Home Medications Medication Instructions Recorded Confirmed Last Taken Type Aspirin [Adult Low Dose Aspirin EC] 81 mg PO DAILY 09/15/16 03/20/17 03/19/17 History Atenolol [Tenormin] 25 mg PO DAILY 09/15/16 03/20/17 03/19/17 History Chlorthalidone 25 mg PO DAILY 09/15/16 03/20/17 03/19/17 History Gabapentin [Gralise] 300 mg PO DAILY 09/15/16 03/20/17 03/19/17 History Ibuprofen [Motrin 800 MG tab] 800 mg PO Q8H PRN 09/15/16 03/20/17 03/19/17 History Lovastatin [Altoprev] 40 mg PO DAILY 09/15/16 03/20/17 03/19/17 History Metformin HCl [Glucophage] 1,000 mg PO BID 09/15/16 03/20/17 03/19/17 History Saxagliptin HCl [Onglyza] 5 mg PO DAILY 09/15/16 03/20/17 03/19/17 History Verapamil ER [Calan Sr] 240 mg PO DAILY 09/15/16 03/20/17 03/19/17 History glipiZIDE [Glucotrol] 10 mg PO BID 09/15/16 03/20/17 03/19/17 History Losartan [Cozaar] 100 mg PO QDAY 03/20/17 03/20/17 03/19/17 History Active Meds: Active Medications Acetaminophen (Tylenol) 650 mg PO Q4H PRN PRN Reason: Pain MILD(1-3)/Fever >100.5/GALVAN Aspirin (Halfprin Ec) 81 mg PO DAILY JUANY Bisacodyl (Dulcolax) 10 mg OR QDAY PRN PRN Reason: Constipation unrelieved by MOM Dextrose (D50w (25gm) Syringe) 0 ml IV ONCE PRN PRN Reason: Hypoglycemia Enoxaparin Sodium (Lovenox) 40 mg SUB-Q QDAY JUANY Gabapentin (Neurontin) 300 mg PO QDAY JUANY Vancomycin HCl (Vancomycin/Ns 1 Gm/250 Ml) 1 gm in 250 mls @ 125 mls/hr IV Q24H [facility] Last Admin: 03/20/17 13:00 Dose: 125 mls/hr Insulin Human Regular 100 (units/ Sodium Chloride) 100 mls @ 1 mls/hr IV TITR JUANY; 1 UNITS/HR PRN Reason: Protocol Last Admin: 03/20/17 17:37 Dose: 4 units/hr, 4 mls/hr Levofloxacin/Dextrose (Levaquin 750mg/150ml) 750 mg in 150 mls @ 100 mls/hr IV Q24HR JUANY PRN Reason: Protocol Sodium Chloride (Nacl 0.9% 1000 Ml) 1,000 mls @ 125 mls/hr IV DIRECT JUANY Magnesium Hydroxide (Milk Of Magnesia) 30 ml PO Q4H PRN PRN Reason: Constipation Morphine Sulfate (Morphine) 2 mg IV Q4H PRN PRN Reason: Pain, Moderate (4-6) Ondansetron HCl (Zofran) 4 mg IV Q8H PRN PRN Reason: N/V unrelieved by Reglan Pravastatin Sodium (Pravachol) 40 mg PO QHS JUANY Vancomycin HCl (Vancomycin Pharmacy To Dose) 1 each IV PKCONSULT JUANY PRN Reason: Protocol Physical Examination Vital signs: Vital Signs Pulse Resp 61 19 03/20/17 09:10 03/20/17 09:10 Results - Laboratory Findings CBC and BMP: 03/20/17 09:39 03/20/17 17:38 PT/INR, D-dimer PT 14.4 Sec. (12.2-14.9) 03/20/17 10:55 INR 1.07 (0.87-1.13) 03/20/17 10:55 Abnormal lab findings: Abnormal Labs 03/20/17 03/20/17 03/20/17 09:38 09:38 09:39 MCH 26 L MCHC 31 L Seg Neutrophils % 77.1 H Seg Neutrophils # 8.4 H VBG pH Sodium Potassium Carbon Dioxide BUN Creatinine Glucose POC Glucose Lactic Acid 3.80 H* Calcium Ammonia Total Protein Albumin Salicylates < 0.3 L Acetaminophen 03/20/17 03/20/17 03/20/17 09:39 09:39 09:43 MCH MCHC Seg Neutrophils % Seg Neutrophils # VBG pH Sodium 133 L Potassium 6.1 H* Carbon Dioxide 18 L BUN Creatinine 1.7 H Glucose 457 H POC Glucose 402 H Lactic Acid Calcium 7.5 L Ammonia Total Protein 4.9 L Albumin 3.0 L Salicylates Acetaminophen < 10.0 L 03/20/17 03/20/17 03/20/17 10:55 10:55 10:55 MCH MCHC Seg Neutrophils % Seg Neutrophils # VBG pH 7.194 L* Sodium Potassium Carbon Dioxide 18 L BUN Creatinine Glucose 417 H POC Glucose Lactic Acid Calcium 7.7 L Ammonia 19.0 L Total Protein Albumin Salicylates Acetaminophen 03/20/17 03/20/17 03/20/17 14:05 15:47 17:27 MCH MCHC Seg Neutrophils % Seg Neutrophils # VBG pH Sodium Potassium 5.2 H Carbon Dioxide 18 L 17 L BUN 21 H Creatinine Glucose 317 H 283 H POC Glucose 235 H Lactic Acid Calcium Ammonia Total Protein Albumin Salicylates Acetaminophen 03/20/17 17:38 MCH MCHC Seg Neutrophils % Seg Neutrophils # VBG pH Sodium 136 L Potassium Carbon Dioxide 17 L BUN Creatinine Glucose 234 H POC Glucose Lactic Acid Calcium Ammonia Total Protein Albumin Salicylates Acetaminophen
[2017-03-20] MEDS: BABY ASPIRIN PO SCH (20:08)
[2017-03-20 20:26] LABS: Calcium 8.8 mg/dL (8.4-10.2); Chloride 106.2 mmol/L (98-107); Potassium 4.2 mmol/L (3.6-5.0)
[2017-03-20] MEDS ORDERED: D5W/0.45% NACL/KCL 20 MEQ 20 MEQ/1,000 ML BAG IV SCH ×2 (21:00)
[2017-03-20] MEDS: ZOSYN/NS 4.5GM/100ML 4.5 GM/100 ML VIAL IV SCH (21:45)
[2017-03-20] MEDS ORDERED: PRAVACHOL PO SCH (22:00)
[2017-03-20] MEDS: ZITHROMAX 500 MG in NACL 0.9% 250ML 250 ML IV SCH (22:05)
[2017-03-20 22:23] LABS: Anion Gap 17 mmol/L; BUN/Creatinine Ratio 14; Blood Urea Nitrogen 19 mg/dL (9-20); Calcium 8.5 mg/dL (8.4-10.2); Carbon Dioxide 20 mmol/L (22-30); Chloride 107.6 mmol/L (98-107); Glucose 92 mg/dL (75-100); Sodium 141 mmol/L (137-145)
[2017-03-20] MEDS: PRAVACHOL PO SCH (22:37)
[2017-03-21 04:57] LABS: Basophils % (Auto) 0.6 % (0.0-1.8); Eosinophils % (Auto) 0.4 % (0.0-4.3); Hematocrit 35.7 % (35.5-45.6); Hemoglobin 11.8 gm/dl (11.8-15.2); Mean Corpuscular HGB Conc 33 % (32-34); Mean Corpuscular Hemoglobin 27 pg (28-32); Mean Corpuscular Volume 82 fl (84-94); Platelet Count 182 K/mm3 (140-440); Red Blood Count 4.36 M/mm3 (3.65-5.03); Red Cell Distribution Width 13.7 % (13.2-15.2); White Blood Count 7.2 K/mm3 (4.5-11.0)
[2017-03-21 05:12] LABS: Anion Gap 18 mmol/L; BUN/Creatinine Ratio 12; Blood Urea Nitrogen 16 mg/dL (9-20); Calcium 8.3 mg/dL (8.4-10.2); Carbon Dioxide 20 mmol/L (22-30); Chloride 107.6 mmol/L (98-107); Glucose 99 mg/dL (75-100); Potassium 4.2 mmol/L (3.6-5.0); Sodium 141 mmol/L (137-145)
--- NOTE | 2017-03-21 05:33 | Consultation ---
PULMONARY CRITICAL CARE CONSULT NOTE This is in coverage for Dr. Sierra. CONSULTING PHYSICIAN: Dr. Shea. REASON FOR CONSULTATION: DKA. CHIEF COMPLAINT AND HISTORY OF PRESENT ILLNESS: As follows: The patient is a 66-year-old -[place] male with past medical history significant amongst other things for a diagnosis of diabetes that he has had over the past 5 years. He states he uses insulin p.r.n. if his blood sugars are over the level of 140 or thereabouts as far as he remembers. He is also on metformin and glipizide and claims he is compliant with his medications. According to the caregiver who was there with him, she heard him fall earlier today. She walked over found him lying on the floor. He denied loss of consciousness. He was trying to get to the bathroom. She tried to help him get there. It seems like he had some urinary incontinence. She is unclear about fecal incontinence. Ultimately, he got there, but he remained confused. I believe emergency medical services were ultimately called and he was brought into the ER. In the ER, he was evaluated and ultimately diagnosed with diabetic ketoacidosis, hence the consult. When I stopped by to see him, he was lying in bed. He was alert, but still not oriented and could not remember the events of earlier. He has about a 10+ pack year tobacco smoking history, but quit smoking in 1971. He and his caregiver deny any vomiting or overt aspirations. They deny any recent sick contacts. He denies any chest pains. He denies any open boils or sores on any part of his body or any infective source. This really is as much of the history of presentation as I have. PAST MEDICAL HISTORY: Hypertension, diabetes. He has also had history of peripheral vascular disease. PAST SURGICAL HISTORY: He has had surgery in the knee. I believe it was the left knee. He has had cataract surgery to the right eye as well as to the left eye. MEDICATIONS: He was on at the time I stopped by to see him, pertinent medications include Lovenox 40 mg subcutaneous daily, Neurontin 300 mg p.o. daily, Levaquin 750 mg IV daily, insulin drip was going at 4 units per hour. He is on p.r.n. Zofran. He also received vancomycin 1 gram IV q. 24 hours. ALLERGIES: No known drug allergies. DIET: Well-built gentleman. Denies acute weight loss or gain in the preceding few weeks to months. FAMILY AND SOCIAL HISTORY: Lives in the community. He has a remote 10+ pack year tobacco smoking history. No current tobacco, alcohol or illicit drug use or abuse. REVIEW OF SYSTEMS: No overt loss of consciousness, but he does have amnesia. Denied any new onset focal weakness. No new onset seizures. No new onset leg pain or swelling either unilaterally or bilaterally. No chest pains. No palpitations. They do admit to snoring; however, no witnessed apneas. Complete 13 review of systems was obtained. Pertinent positives and/or negatives as in body of history above, otherwise, noncontributory. PHYSICAL EXAMINATION: VITAL SIGNS: On presentation, he was hypothermic, temperature 95 degrees Fahrenheit with a pulse of 54, respiratory rate of 21 and blood pressure 94/64, oxygen sats were 98%, inspired oxygen concentration was not recorded. GENERAL: He is normocephalic. He is atraumatic. He is talking to me in full sentences. He does have confused look in his face, but no overt respiratory distress. HEAD, EYES, EARS, NOSE AND THROAT: He is anicteric. No conjunctival erythema. No gross jugular venous distention, no thyromegaly. Oropharynx is a Mallampati #2 oropharynx. No significant posterior pharyngeal erythema. The oropharynx is moist. NECK: Grossly, there were no palpable lymph nodes in the supraclavicular or submandibular lymph node chains. LUNGS: Auscultation of both lung martins unremarkable. Lungs are clear bilaterally. HEART: Sounds 1 and 2 are heard at the time of my evaluation, regular rate and rhythm. No rubs, no murmurs. ABDOMEN: Soft, full, bowel sounds are positive, nontender. No palpable hepatosplenomegaly. EXTREMITIES: Without overt digital clubbing, cyanosis, no pedal edema. SKIN: Is of normal turgor. No cellulitis, no rash. No sores that I can see. NEUROLOGIC: Pupils are equal, round, about 3 mm, reactive to light. Extraocular muscle movements appeared intact. He moves all 4 extremities spontaneously. LABORATORY DATA: From my review are as follows: White cell count 10,800, hemoglobin 12.3, hematocrit 39.5 with a platelet count of 198. INR 1.07. Venous blood gas showed a pH of 7.19. Serum sodium was 137, potassium 5.0, chloride 102, bicarbonate 18, BUN 19, creatinine 1.5 and glucose of 417. Lactic acid level was 3.8. Phosphorus and mag within normal limits. Liver function tests essentially within normal limits. Ammonia was low at 19. Cardiac enzymes were negative. BNP was within normal limits. Urinalysis was unremarkable except for spilling glucose. Urine drug screen was negative. Tylenol, aspirin and alcohol levels were within expected limits. Two sets of blood cultures were drawn. There are no growth to date. Chest x-ray was done. I have reviewed the chest x-ray essentially normal. No cardiomegaly. The film is rotated to the left. There is a slight increase in interstitial markings; however, no overt pulmonary edema that I can see. No gross pneumothorax, no gross bony fractures. A CT of the abdomen and pelvis was also done, non-contrast CT I believe. I was able to look at the lung windows and again those are unremarkable. There is some motion artifact. The report of the CT abdomen and pelvis shows a non-obstructing left renal calculus with nonspecific perinephric stranding, possible gallbladder sludge, diverticulosis and no diverticulitis. A CT of the head and brain was done also and essentially it shows a left occipital infarct of indeterminate age and then chronic involutional changes. ASSESSMENT AND PLAN: We have an elderly gentleman in with altered mental status, possible loss of consciousness, etiology is unknown essentially a syncopal episode, but also found to be in DKA. 1. Diabetic ketoacidosis. 2. Altered mental status. 3. Abnormal CT of the brain with chronic-looking infarct. 4. Poorly controlled diabetes. 5. History of hypertension. 6. History of peripheral vascular disease. PLAN: Continue IV insulin drip and continue DKA protocol. Follow the anion gap hopefully till it closes. Anion gap, to be honest, really was not that elevated when he came in. I did not even see an elevation in the anion gap and it makes the overall picture a little bit more bothersome. Continue empiric antibiotic therapy especially with the lactic acidosis. I will go ahead and order a CRP level and trend as necessary. We will follow cultures and deescalate the antibiotics based on the culture report. I believe a Neurology evaluation is in order for this gentleman with altered mental status. Syncope workup is certainly also in order. We will order a 2D echocardiogram, in fact, one has not been done. Carotid ultrasounds will also be of benefit in this gentleman with known peripheral vascular disease. He is continuing antilipid therapy. He is appropriately on DVT prophylaxis. Flu and pneumonia vaccination will be per protocol. Thank you very much for the consult. We will follow along and make further recommendations as picture progresses/becomes clearer. He will be admitted to the intensive care unit. JOB# [id number] MANUEL/NTS
--- NOTE | 2017-03-21 08:12 | Progress Note ---
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 Who is admitted for generalized weakness and hyperglycemia. Sepsis due to Pneumonia Blood cultures collected prior to antibiotic Follow Blood cultures Aggressive IV fluid resuscitation Stopped IV zosyn and vancomycin due to patient allergic to Zosyn. Started on Levaquin Supportive care DKA/ Diabetes mellitus DKA Resolved Accu-Chek before meals and at bedtime Sliding scale insulin/NovoLog ADA carbohydrate consistent diet Mixed acidosis Resolved Patient has a mixed acidosis with lactic acidosis and DKA. Prophylaxis Lovenox History Interval history: Patient denies having pain at preset time Hospitalist Physical - Constitutional Vitals: Temp Pulse Resp BP Pulse Ox 99.1 F 99 H 18 130/71 93 03/21/17 04:18 03/21/17 04:18 03/21/17 04:18 03/21/17 04:18 03/21/17 04:18 General appearance: Present: no acute distress, well-nourished - EENT Eyes: Present: PERRL ENT: hearing intact - Neck Neck: Present: supple - Respiratory Respiratory effort: normal Respiratory: bilateral: CTA - Cardiovascular Rhythm: regular Heart Sounds: Present: S1 & S2 - Abdominal General gastrointestinal: soft, non-tender - Integumentary Integumentary: Present: clear, warm, dry - Psychiatric Psychiatric: appropriate mood/affect - Neurologic Neurologic: moves all extremities - Allied Health Allied health notes reviewed: nursing Results - Labs CBC & Chem 7: 03/21/17 04:01 03/21/17 13:27 Labs: Laboratory Last Values WBC 7.2 K/mm3 (4.5-11.0) 03/21/17 04:01 RBC 4.36 M/mm3 (3.65-5.03) 03/21/17 04:01 Hgb 11.8 gm/dl (11.8-15.2) 03/21/17 04:01 Hct 35.7 % (35.5-45.6) 03/21/17 04:01 MCV 82 fl (84-94) L 03/21/17 04:01 MCH 27 pg (28-32) L 03/21/17 04:01 MCHC 33 % (32-34) 03/21/17 04:01 RDW 13.7 % (13.2-15.2) 03/21/17 04:01 Plt Count 182 K/mm3 (140-440) 03/21/17 04:01 Lymph % (Auto) 23.7 % (13.4-35.0) 03/21/17 04:01 [place] % (Auto) 13.0 % (0.0-7.3) H 03/21/17 04:01 Eos % (Auto) 0.4 % (0.0-4.3) 03/21/17 04:01 Baso % (Auto) 0.6 % (0.0-1.8) 03/21/17 04:01 Lymph # 1.7 K/mm3 (1.2-5.4) 03/21/17 04:01 [place] # 0.9 K/mm3 (0.0-0.8) H 03/21/17 04:01 Eos # 0.0 K/mm3 (0.0-0.4) 03/21/17 04:01 Baso # 0.0 K/mm3 (0.0-0.1) 03/21/17 04:01 Seg Neutrophils % 62.3 % (40.0-70.0) 03/21/17 04:01 Seg Neutrophils # 4.5 K/mm3 (1.8-7.7) 03/21/17 04:01 PT 14.4 Sec. (12.2-14.9) 03/20/17 10:55 INR 1.07 (0.87-1.13) 03/20/17 10:55 APTT 25.7 Sec. (24.2-36.6) 03/20/17 10:55 VBG pH 7.194 (7.320-7.420) L* 03/20/17 10:55 Sodium 141 mmol/L (137-145) 03/21/17 04:01 Potassium 4.2 mmol/L (3.6-5.0) 03/21/17 04:01 Chloride 107.6 mmol/L (98-107) H 03/21/17 04:01 Carbon Dioxide 20 mmol/L (22-30) L 03/21/17 04:01 Anion Gap 18 mmol/L 03/21/17 04:01 BUN 16 mg/dL (9-20) 03/21/17 04:01 Creatinine 1.3 mg/dL (0.8-1.5) 03/21/17 04:01 Estimated GFR > 60 ml/min 03/21/17 04:01 BUN/Creatinine Ratio 12 % 03/21/17 04:01 Glucose 99 mg/dL (75-100) 03/21/17 04:01 POC Glucose 115 (70-105) H 03/20/17 23:27 Ketones Quantitative Small (Negative) 03/20/17 10:55 Lactic Acid 2.50 mmol/L (0.7-2.0) H* 03/20/17 19:41 Calcium 8.3 mg/dL (8.4-10.2) L 03/21/17 04:01 Phosphorus 2.50 mg/dL (2.5-4.5) 03/20/17 13:00 Magnesium 1.70 mg/dL (1.7-2.3) 03/20/17 13:00 Total Bilirubin 0.50 mg/dL (0.1-1.2) 03/20/17 09:39 AST 37 units/L (5-40) 03/20/17 09:39 ALT 48 units/L (7-56) 03/20/17 09:39 Alkaline Phosphatase 54 units/L (35-129) 03/20/17 09:39 Ammonia 19.0 umol/L (25-60) L 03/20/17 10:55 Total Creatine Kinase 104 units/L (55-170) 03/20/17 10:55 CK-MB (CK-2) 1.5 ng/mL (0.0-4.0) 03/20/17 10:55 CK-MB (CK-2) Rel Index 1.4 (0-4) 03/20/17 10:55 Troponin T < 0.010 ng/mL (0.00-0.029) 03/20/17 10:55 C-Reactive Protein 0.20 mg/dL (0.00-1.30) 03/20/17 19:41 NT-Pro-B Natriuret Pep 59.79 pg/mL (0-900) 03/20/17 10:55 Total Protein 4.9 g/dL (6.3-8.2) L 03/20/17 09:39 Albumin 3.0 g/dL (3.9-5) L 03/20/17 09:39 Albumin/Globulin Ratio 1.6 % 03/20/17 09:39 Lipase 36 units/L (13-60) 03/20/17 11:08 TSH 1.930 mlU/mL (0.270-4.200) 03/20/17 09:38 Urine Color Yellow (Yellow) 03/20/17 11:56 Urine Turbidity Clear (Clear) 03/20/17 11:56 Urine pH 5.0 (5.0-7.0) 03/20/17 11:56 Ur Specific [place] 1.017 (1.003-1.030) 03/20/17 11:56 Urine Protein <15 mg/dl mg/dL (Negative) 03/20/17 11:56 Urine Glucose (UA) >=500 mg/dL (Negative) 03/20/17 11:56 Urine Ketones Tr mg/dL (Negative) 03/20/17 11:56 Urine Blood Neg (Negative) 03/20/17 11:56 Urine Nitrite Neg (Negative) 03/20/17 11:56 Urine Bilirubin Neg (Negative) 03/20/17 11:56 Urine Urobilinogen < 2.0 mg/dL (<2.0) 03/20/17 11:56 Ur Leukocyte Esterase Neg (Negative) 03/20/17 11:56 Urine WBC (Auto) 1.0 /HPF (0.0-6.0) 03/20/17 11:56 Urine RBC (Auto) 3.0 /HPF (0.0-6.0) 03/20/17 11:56 U Epithel Cells (Auto) < 1.0 /HPF (0-13.0) 03/20/17 11:56 Urine Mucus Few /HPF 03/20/17 11:56 Salicylates < 0.3 mg/dL (2.8-20.0) L 03/20/17 09:38 Urine Opiates Screen Presumptive negative 03/20/17 11:56 Urine Methadone Screen Presumptive negative 03/20/17 11:56 Acetaminophen < 10.0 ug/mL (10.0-30.0) L 03/20/17 09:39 Ur Barbiturates Screen Presumptive negative 03/20/17 11:56 Ur Phencyclidine Scrn Presumptive negative 03/20/17 11:56 Ur Amphetamines Screen Presumptive negative 03/20/17 11:56 U Benzodiazepines Scrn Presumptive negative 03/20/17 11:56 Urine Cocaine Screen Presumptive negative 03/20/17 11:56 U Marijuana (THC) Screen Presumptive negative 03/20/17 11:56 Drugs of Abuse Note Disclamer 03/20/17 11:56 Plasma/Serum Alcohol < 0.01 gm% (0-0.07) 03/20/17 09:39 <ALMA DELIA BERRIOS O - Last Filed: 03/22/17 01:09> Assessment and Plan Assessment and plan: I saw and evaluated the patient. I agree with the findings and the plan of care as documented in the Nurse Practitioner's~note, with the following corrections and additions. Patient with sepsis due to pneumonia. He had allergic reaction to Zosyn. Now started on Levaquin. Zosyn discontinued. Hospitalist Physical - Constitutional Vitals: Temp Pulse Resp BP Pulse Ox 99.3 F 96 H 18 153/85 100 03/21/17 19:24 03/21/17 19:24 03/21/17 19:24 03/21/17 19:24 03/21/17 19:24 Results - Labs CBC & Chem 7: 03/21/17 04:01 03/21/17 13:27 Labs: Laboratory Last Values WBC 7.2 K/mm3 (4.5-11.0) 03/21/17 04:01 RBC 4.36 M/mm3 (3.65-5.03) 03/21/17 04:01 Hgb 11.8 gm/dl (11.8-15.2) 03/21/17 04:01 Hct 35.7 % (35.5-45.6) 03/21/17 04:01 MCV 82 fl (84-94) L 03/21/17 04:01 MCH 27 pg (28-32) L 03/21/17 04:01 MCHC 33 % (32-34) 03/21/17 04:01 RDW 13.7 % (13.2-15.2) 03/21/17 04:01 Plt Count 182 K/mm3 (140-440) 03/21/17 04:01 Lymph % (Auto) 23.7 % (13.4-35.0) 03/21/17 04:01 [place] % (Auto) 13.0 % (0.0-7.3) H 03/21/17 04:01 Eos % (Auto) 0.4 % (0.0-4.3) 03/21/17 04:01 Baso % (Auto) 0.6 % (0.0-1.8) 03/21/17 04:01 Lymph # 1.7 K/mm3 (1.2-5.4) 03/21/17 04:01 [place] # 0.9 K/mm3 (0.0-0.8) H 03/21/17 04:01 Eos # 0.0 K/mm3 (0.0-0.4) 03/21/17 04:01 Baso # 0.0 K/mm3 (0.0-0.1) 03/21/17 04:01 Seg Neutrophils % 62.3 % (40.0-70.0) 03/21/17 04:01 Seg Neutrophils # 4.5 K/mm3 (1.8-7.7) 03/21/17 04:01 PT 14.4 Sec. (12.2-14.9) 03/20/17 10:55 INR 1.07 (0.87-1.13) 03/20/17 10:55 APTT 25.7 Sec. (24.2-36.6) 03/20/17 10:55 VBG pH 7.194 (7.320-7.420) L* 03/20/17 10:55 Sodium 140 mmol/L (137-145) 03/21/17 13:27 Potassium 3.8 mmol/L (3.6-5.0) 03/21/17 13:27 Chloride 105.4 mmol/L (98-107) 03/21/17 13:27 Carbon Dioxide 21 mmol/L (22-30) L 03/21/17 13:27 Anion Gap 17 mmol/L 03/21/17 13:27 BUN 13 mg/dL (9-20) 03/21/17 13:27 Creatinine 1.3 mg/dL (0.8-1.5) 03/21/17 13:27 Estimated GFR > 60 ml/min 03/21/17 13:27 BUN/Creatinine Ratio 10 % 03/21/17 13:27 Glucose 204 mg/dL (75-100) H 03/21/17 13:27 POC Glucose 172 (70-105) H 03/21/17 22:11 Ketones Quantitative Small (Negative) 03/20/17 10:55 Lactic Acid 2.50 mmol/L (0.7-2.0) H* 03/20/17 19:41 Calcium 8.4 mg/dL (8.4-10.2) 03/21/17 13:27 Phosphorus 2.50 mg/dL (2.5-4.5) 03/20/17 13:00 Magnesium 1.70 mg/dL (1.7-2.3) 03/20/17 13:00 Total Bilirubin 0.50 mg/dL (0.1-1.2) 03/20/17 09:39 AST 37 units/L (5-40) 03/20/17 09:39 ALT 48 units/L (7-56) 03/20/17 09:39 Alkaline Phosphatase 54 units/L (35-129) 03/20/17 09:39 Ammonia 19.0 umol/L (25-60) L 03/20/17 10:55 Total Creatine Kinase 104 units/L (55-170) 03/20/17 10:55 CK-MB (CK-2) 1.5 ng/mL (0.0-4.0) 03/20/17 10:55 CK-MB (CK-2) Rel Index 1.4 (0-4) 03/20/17 10:55 Troponin T < 0.010 ng/mL (0.00-0.029) 03/20/17 10:55 C-Reactive Protein 0.20 mg/dL (0.00-1.30) 03/20/17 19:41 NT-Pro-B Natriuret Pep 59.79 pg/mL (0-900) 03/20/17 10:55 Total Protein 4.9 g/dL (6.3-8.2) L 03/20/17 09:39 Albumin 3.0 g/dL (3.9-5) L 03/20/17 09:39 Albumin/Globulin Ratio 1.6 % 03/20/17 09:39 Lipase 36 units/L (13-60) 03/20/17 11:08 TSH 1.930 mlU/mL (0.270-4.200) 03/20/17 09:38 Urine Color Yellow (Yellow) 03/20/17 11:56 Urine Turbidity Clear (Clear) 03/20/17 11:56 Urine pH 5.0 (5.0-7.0) 03/20/17 11:56 Ur Specific [place] 1.017 (1.003-1.030) 03/20/17 11:56 Urine Protein <15 mg/dl mg/dL (Negative) 03/20/17 11:56 Urine Glucose (UA) >=500 mg/dL (Negative) 03/20/17 11:56 Urine Ketones Tr mg/dL (Negative) 03/20/17 11:56 Urine Blood Neg (Negative) 03/20/17 11:56 Urine Nitrite Neg (Negative) 03/20/17 11:56 Urine Bilirubin Neg (Negative) 03/20/17 11:56 Urine Urobilinogen < 2.0 mg/dL (<2.0) 03/20/17 11:56 Ur Leukocyte Esterase Neg (Negative) 03/20/17 11:56 Urine WBC (Auto) 1.0 /HPF (0.0-6.0) 03/20/17 11:56 Urine RBC (Auto) 3.0 /HPF (0.0-6.0) 03/20/17 11:56 U Epithel Cells (Auto) < 1.0 /HPF (0-13.0) 03/20/17 11:56 Urine Mucus Few /HPF 03/20/17 11:56 Salicylates < 0.3 mg/dL (2.8-20.0) L 03/20/17 09:38 Urine Opiates Screen Presumptive negative 03/20/17 11:56 Urine Methadone Screen Presumptive negative 03/20/17 11:56 Acetaminophen < 10.0 ug/mL (10.0-30.0) L 03/20/17 09:39 Ur Barbiturates Screen Presumptive negative 03/20/17 11:56 Ur Phencyclidine Scrn Presumptive negative 03/20/17 11:56 Ur Amphetamines Screen Presumptive negative 03/20/17 11:56 U Benzodiazepines Scrn Presumptive negative 03/20/17 11:56 Urine Cocaine Screen Presumptive negative 03/20/17 11:56 U Marijuana (THC) Screen Presumptive negative 03/20/17 11:56 Drugs of Abuse Note Disclamer 03/20/17 11:56 Plasma/Serum Alcohol < 0.01 gm% (0-0.07) 03/20/17 09:39
[2017-03-21] MEDS: GLUCOTROL PO SCH ×2 (09:58→17:52)
[2017-03-21] MEDS: NEURONTIN PO SCH (09:58)
[2017-03-21] MEDS: GLUCOPHAGE PO SCH ×2 (09:58→17:52)
[2017-03-21] MEDS: BABY ASPIRIN PO SCH (09:59)
[2017-03-21] MEDS: HALFPRIN EC PO SCH (09:59)
[2017-03-21] MEDS: LOVENOX SUB-Q SCH (09:59)
[2017-03-21] MEDS ORDERED: NON-FORMULARY (Lovastatin [Altoprev] 40 MG) PO SCH (10:00)
[2017-03-21] MEDS ORDERED: NON-FORMULARY (Gabapentin [Gralise] 300 MG) PO SCH (10:00)
[2017-03-21] MEDS ORDERED: LEVAQUIN 750MG/150ML 750 MG/150 ML BAG IV SCH (10:00)
[2017-03-21] MEDS: ZITHROMAX 500 MG in NACL 0.9% 250ML 250 ML IV SCH (10:27)
[2017-03-21] MEDS ORDERED: BENADRYL IV STA (10:36)
[2017-03-21] MEDS: VANCOMYCIN/NS 1 GM/250 ML 1 GM/250 ML BAG IV SCH (13:23)
[2017-03-21 13:59] LABS: Anion Gap 17 mmol/L; BUN/Creatinine Ratio 10; Blood Urea Nitrogen 13 mg/dL (9-20); Calcium 8.4 mg/dL (8.4-10.2); Carbon Dioxide 21 mmol/L (22-30); Chloride 105.4 mmol/L (98-107); Glucose 204 mg/dL (75-100); Potassium 3.8 mmol/L (3.6-5.0); Sodium 140 mmol/L (137-145)
--- NOTE | 2017-03-21 16:57 | Progress Note ---
Assessment and Plan Patient alert, awake, resting on room air. No complaint of chest pain shortness of breath or cough.O2 saturation 99% on room air. - Patient Problems (1) Pulmonary infiltrates on CXR Current Visit: Yes Status: Acute Plan to address problem: Patient is on I/V Levaquine and zithromax. (2) DKA (diabetic ketoacidoses) Current Visit: Yes Status: Acute Qualifiers: Diabetes mellitus type: type 1 Diabetes mellitus complication detail: without coma Qualified Code(s): E10.10 - Type 1 diabetes mellitus with ketoacidosis without coma Plan to address problem: Improving. Todays bicarb is 21. (3) Hypotension Current Visit: Yes Status: Acute Qualifiers: Hypotension type: unspecified hypotension type Qualified Code(s): I95.9 - Hypotension, unspecified Plan to address problem: Improved. Today blood pressure is 139/65. Subjective Date of service: 03/21/17 Interval history: Patient alert, awake, resting on room air. No complaint of chest pain shortness of breath or cough.O2 saturation 99% on room air. Objective Vital Signs - 12hr 03/21/17 03/21/17 03/21/17 07:23 10:00 11:48 Temperature 98.2 F 99.6 F Pulse Rate 94 H 103 H Pulse Rate [ 97 H Right Brachial] Respiratory 18 18 Rate Blood Pressure 134/76 117/72 Blood Pressure [Left] O2 Sat by Pulse 100 100 99 Oximetry 03/21/17 03/21/17 14:44 15:00 Temperature 99.2 F 99.1 F Pulse Rate 100 H 95 H Pulse Rate [ Right Brachial] Respiratory 18 18 Rate Blood Pressure 134/74 Blood Pressure 139/65 [Left] O2 Sat by Pulse 99 Oximetry Constitutional: no acute distress, alert Eyes: non-icteric ENT: oropharynx moist Ascultation: Right: rhonchi Cardiovascular: regular rate and rhythm Gastrointestinal: normoactive bowel sounds, soft, non-tender Integumentary: normal Extremities: no cyanosis, no edema Neurologic: normal mental status, non-focal exam, pupils equal and round, CN II- XII normal Psychiatric: mood appropriate CBC and BMP: 03/21/17 04:01 03/21/17 13:27 ABG, PT/INR, D-dimer: PT/INR, D-dimer PT 14.4 Sec. (12.2-14.9) 03/20/17 10:55 INR 1.07 (0.87-1.13) 03/20/17 10:55 Abnormal lab findings: Abnormal Labs 03/20/17 03/20/17 03/20/17 09:38 09:38 09:39 MCV MCH 26 L MCHC 31 L [place] % (Auto) [place] # Seg Neutrophils % 77.1 H Seg Neutrophils # 8.4 H VBG pH Sodium Potassium Chloride Carbon Dioxide BUN Creatinine Glucose POC Glucose Lactic Acid 3.80 H* Calcium Ammonia Total Protein Albumin Salicylates < 0.3 L Acetaminophen 03/20/17 03/20/17 03/20/17 09:39 09:39 09:43 MCV MCH MCHC [place] % (Auto) [place] # Seg Neutrophils % Seg Neutrophils # VBG pH Sodium 133 L Potassium 6.1 H* Chloride Carbon Dioxide 18 L BUN Creatinine 1.7 H Glucose 457 H POC Glucose 402 H Lactic Acid Calcium 7.5 L Ammonia Total Protein 4.9 L Albumin 3.0 L Salicylates Acetaminophen < 10.0 L 03/20/17 03/20/17 03/20/17 10:55 10:55 10:55 MCV MCH MCHC [place] % (Auto) [place] # Seg Neutrophils % Seg Neutrophils # VBG pH 7.194 L* Sodium Potassium Chloride Carbon Dioxide 18 L BUN Creatinine Glucose 417 H POC Glucose Lactic Acid Calcium 7.7 L Ammonia 19.0 L Total Protein Albumin Salicylates Acetaminophen 03/20/17 03/20/17 03/20/17 14:05 15:47 17:27 MCV MCH MCHC [place] % (Auto) [place] # Seg Neutrophils % Seg Neutrophils # VBG pH Sodium Potassium 5.2 H Chloride Carbon Dioxide 18 L 17 L BUN 21 H Creatinine Glucose 317 H 283 H POC Glucose 235 H Lactic Acid Calcium Ammonia Total Protein Albumin Salicylates Acetaminophen 03/20/17 03/20/17 03/20/17 17:38 18:44 19:41 MCV MCH MCHC [place] % (Auto) [place] # Seg Neutrophils % Seg Neutrophils # VBG pH Sodium 136 L Potassium Chloride Carbon Dioxide 17 L 21 L BUN Creatinine Glucose 234 H 130 H POC Glucose 214 H Lactic Acid Calcium Ammonia Total Protein Albumin Salicylates Acetaminophen 03/20/17 03/20/17 03/20/17 19:41 20:06 21:52 MCV MCH MCHC [place] % (Auto) [place] # Seg Neutrophils % Seg Neutrophils # VBG pH Sodium Potassium Chloride 107.6 H Carbon Dioxide 20 L BUN Creatinine Glucose POC Glucose 122 H Lactic Acid 2.50 H* Calcium Ammonia Total Protein Albumin Salicylates Acetaminophen 03/20/17 03/21/17 03/21/17 23:27 04:01 04:01 MCV 82 L MCH 27 L MCHC [place] % (Auto) 13.0 H [place] # 0.9 H Seg Neutrophils % Seg Neutrophils # VBG pH Sodium Potassium Chloride 107.6 H Carbon Dioxide 20 L BUN Creatinine Glucose POC Glucose 115 H Lactic Acid Calcium 8.3 L Ammonia Total Protein Albumin Salicylates Acetaminophen 03/21/17 03/21/17 03/21/17 08:14 11:51 13:27 MCV MCH MCHC [place] % (Auto) [place] # Seg Neutrophils % Seg Neutrophils # VBG pH Sodium Potassium Chloride Carbon Dioxide 21 L BUN Creatinine Glucose 204 H POC Glucose 184 H 252 H Lactic Acid Calcium Ammonia Total Protein Albumin Salicylates Acetaminophen Chest x-ray: report reviewed (Reported perihilar edema or infiltrates.), image reviewed
[2017-03-21] MEDS: LEVAQUIN 750MG/150ML 750 MG/150 ML BAG IV SCH (18:53)
[2017-03-22] MEDS: PRAVACHOL PO SCH ×2 (06:11→22:25)
--- NOTE | 2017-03-22 09:32 | Progress Note ---
Assessment and Plan Assessment and plan: Sepsis due to Pneumonia F/U Blood cultures Cont. Aggressive IV fluid resuscitation Stopped IV zosyn and vancomycin due to patient allergic to Zosyn. Started on Levaquin Supportive care DKA/ Diabetes mellitus DKA Resolved Accu-Chek before meals and at bedtime Sliding scale insulin/NovoLog ADA carbohydrate consistent diet Diarrhea. Check C. difficile. Flagyl 500 mg IV every 8 hours. DVT Prophylaxis Lovenox History Interval history: no new issues overnightexcept patient complains of diarrhea 2. Hospitalist Physical - Constitutional Vitals: Temp Pulse Resp BP Pulse Ox 99.6 F 88 18 152/83 99 03/22/17 07:30 03/22/17 07:30 03/22/17 07:30 03/22/17 07:30 03/22/17 07:30 General appearance: Present: no acute distress, well-nourished - EENT Eyes: Present: PERRL, EOM intact ENT: hearing intact, clear oral mucosa, dentition normal - Neck Neck: Present: supple, normal ROM - Respiratory Respiratory effort: normal Respiratory: bilateral: CTA - Cardiovascular Rhythm: regular Heart Sounds: Present: S1 & S2. Absent: gallop, rub - Extremities Extremities: no ischemia, No edema, Full ROM - Abdominal General gastrointestinal: soft, non-tender, non-distended, normal bowel sounds - Integumentary Integumentary: Present: clear, warm, dry - Neurologic Neurologic: CNII-XII intact, moves all extremities Results - Labs CBC & Chem 7: 03/21/17 04:01 03/21/17 13:27 Labs: Laboratory Last Values WBC 7.2 K/mm3 (4.5-11.0) 03/21/17 04:01 RBC 4.36 M/mm3 (3.65-5.03) 03/21/17 04:01 Hgb 11.8 gm/dl (11.8-15.2) 03/21/17 04:01 Hct 35.7 % (35.5-45.6) 03/21/17 04:01 MCV 82 fl (84-94) L 03/21/17 04:01 MCH 27 pg (28-32) L 03/21/17 04:01 MCHC 33 % (32-34) 03/21/17 04:01 RDW 13.7 % (13.2-15.2) 03/21/17 04:01 Plt Count 182 K/mm3 (140-440) 03/21/17 04:01 Lymph % (Auto) 23.7 % (13.4-35.0) 03/21/17 04:01 [place] % (Auto) 13.0 % (0.0-7.3) H 03/21/17 04:01 Eos % (Auto) 0.4 % (0.0-4.3) 03/21/17 04:01 Baso % (Auto) 0.6 % (0.0-1.8) 03/21/17 04:01 Lymph # 1.7 K/mm3 (1.2-5.4) 03/21/17 04:01 [place] # 0.9 K/mm3 (0.0-0.8) H 03/21/17 04:01 Eos # 0.0 K/mm3 (0.0-0.4) 03/21/17 04:01 Baso # 0.0 K/mm3 (0.0-0.1) 03/21/17 04:01 Seg Neutrophils % 62.3 % (40.0-70.0) 03/21/17 04:01 Seg Neutrophils # 4.5 K/mm3 (1.8-7.7) 03/21/17 04:01 PT 14.4 Sec. (12.2-14.9) 03/20/17 10:55 INR 1.07 (0.87-1.13) 03/20/17 10:55 APTT 25.7 Sec. (24.2-36.6) 03/20/17 10:55 VBG pH 7.194 (7.320-7.420) L* 03/20/17 10:55 Sodium 140 mmol/L (137-145) 03/21/17 13:27 Potassium 3.8 mmol/L (3.6-5.0) 03/21/17 13:27 Chloride 105.4 mmol/L (98-107) 03/21/17 13:27 Carbon Dioxide 21 mmol/L (22-30) L 03/21/17 13:27 Anion Gap 17 mmol/L 03/21/17 13:27 BUN 13 mg/dL (9-20) 03/21/17 13:27 Creatinine 1.3 mg/dL (0.8-1.5) 03/21/17 13:27 Estimated GFR > 60 ml/min 03/21/17 13:27 BUN/Creatinine Ratio 10 % 03/21/17 13:27 Glucose 204 mg/dL (75-100) H 03/21/17 13:27 POC Glucose 172 (70-105) H 03/21/17 22:11 Ketones Quantitative Small (Negative) 03/20/17 10:55 Lactic Acid 2.50 mmol/L (0.7-2.0) H* 03/20/17 19:41 Calcium 8.4 mg/dL (8.4-10.2) 03/21/17 13:27 Phosphorus 2.50 mg/dL (2.5-4.5) 03/20/17 13:00 Magnesium 1.70 mg/dL (1.7-2.3) 03/20/17 13:00 Total Bilirubin 0.50 mg/dL (0.1-1.2) 03/20/17 09:39 AST 37 units/L (5-40) 03/20/17 09:39 ALT 48 units/L (7-56) 03/20/17 09:39 Alkaline Phosphatase 54 units/L (35-129) 03/20/17 09:39 Ammonia 19.0 umol/L (25-60) L 03/20/17 10:55 Total Creatine Kinase 104 units/L (55-170) 03/20/17 10:55 CK-MB (CK-2) 1.5 ng/mL (0.0-4.0) 03/20/17 10:55 CK-MB (CK-2) Rel Index 1.4 (0-4) 03/20/17 10:55 Troponin T < 0.010 ng/mL (0.00-0.029) 03/20/17 10:55 C-Reactive Protein 0.20 mg/dL (0.00-1.30) 03/20/17 19:41 NT-Pro-B Natriuret Pep 59.79 pg/mL (0-900) 03/20/17 10:55 Total Protein 4.9 g/dL (6.3-8.2) L 03/20/17 09:39 Albumin 3.0 g/dL (3.9-5) L 03/20/17 09:39 Albumin/Globulin Ratio 1.6 % 03/20/17 09:39 Lipase 36 units/L (13-60) 03/20/17 11:08 TSH 1.930 mlU/mL (0.270-4.200) 03/20/17 09:38 Urine Color Yellow (Yellow) 03/20/17 11:56 Urine Turbidity Clear (Clear) 03/20/17 11:56 Urine pH 5.0 (5.0-7.0) 03/20/17 11:56 Ur Specific [place] 1.017 (1.003-1.030) 03/20/17 11:56 Urine Protein <15 mg/dl mg/dL (Negative) 03/20/17 11:56 Urine Glucose (UA) >=500 mg/dL (Negative) 03/20/17 11:56 Urine Ketones Tr mg/dL (Negative) 03/20/17 11:56 Urine Blood Neg (Negative) 03/20/17 11:56 Urine Nitrite Neg (Negative) 03/20/17 11:56 Urine Bilirubin Neg (Negative) 03/20/17 11:56 Urine Urobilinogen < 2.0 mg/dL (<2.0) 03/20/17 11:56 Ur Leukocyte Esterase Neg (Negative) 03/20/17 11:56 Urine WBC (Auto) 1.0 /HPF (0.0-6.0) 03/20/17 11:56 Urine RBC (Auto) 3.0 /HPF (0.0-6.0) 03/20/17 11:56 U Epithel Cells (Auto) < 1.0 /HPF (0-13.0) 03/20/17 11:56 Urine Mucus Few /HPF 03/20/17 11:56 Salicylates < 0.3 mg/dL (2.8-20.0) L 03/20/17 09:38 Urine Opiates Screen Presumptive negative 03/20/17 11:56 Urine Methadone Screen Presumptive negative 03/20/17 11:56 Acetaminophen < 10.0 ug/mL (10.0-30.0) L 03/20/17 09:39 Ur Barbiturates Screen Presumptive negative 03/20/17 11:56 Ur Phencyclidine Scrn Presumptive negative 03/20/17 11:56 Ur Amphetamines Screen Presumptive negative 03/20/17 11:56 U Benzodiazepines Scrn Presumptive negative 03/20/17 11:56 Urine Cocaine Screen Presumptive negative 03/20/17 11:56 U Marijuana (THC) Screen Presumptive negative 03/20/17 11:56 Drugs of Abuse Note Disclamer 03/20/17 11:56 Plasma/Serum Alcohol < 0.01 gm% (0-0.07) 03/20/17 09:39
[2017-03-22] MEDS: GLUCOPHAGE PO SCH ×2 (10:04→19:00)
[2017-03-22] MEDS: LOVENOX SUB-Q SCH (10:04)
[2017-03-22] MEDS: NEURONTIN PO SCH (10:04)
[2017-03-22] MEDS: HALFPRIN EC PO SCH (10:04)
[2017-03-22] MEDS: GLUCOTROL PO SCH ×2 (10:05→19:00)
[2017-03-22] MEDS: ZITHROMAX 500 MG in NACL 0.9% 250ML 250 ML IV SCH (11:35)
[2017-03-22] MEDS: FLAGYL 500 MG/100 ML 500 MG/100 ML BAG IV SCH ×2 (14:19→22:25)
--- NOTE | 2017-03-22 17:22 | Progress Note ---
Assessment and Plan DKA Acute Encephalopathy Lactic Acidosis Pneumonia Sepsis Syndrome HTN Diabetes - continue glycemic control with SSI - continue empiric AB's and follow cultures - prn bronchodilators - adjust oral antihypertensives - PT/OT as tolerated ..re-evaluate in am & prn Subjective Date of service: 03/22/17 Principal diagnosis: DKA; Acute Encephalopathy Interval history: Patient is Seen today for: DKA; Acute Encephalopathy Seen and examined at bedside; 24 hour events reviewed; nursing and respiratory care staff consulted; doing better; resting in bed; denies acute chest paisn or increased SOB Objective Vital Signs - 12hr 03/22/17 03/22/17 07:30 15:33 Temperature 99.6 F 99.6 F Pulse Rate 90 110 H Respiratory 18 18 Rate Blood Pressure 152/83 127/80 [Left] O2 Sat by Pulse 99 98 Oximetry Constitutional: no acute distress, alert Eyes: non-icteric ENT: oropharynx moist Neck: supple, no lymphadenopathy, no JVD, other (no thyromegaly) Ascultation: Bilateral: diminished breath sounds, rhonchi Percussion: Bilateral: not dull Cardiovascular: regular rate and rhythm, other (no rubs or murmurs) Gastrointestinal: normoactive bowel sounds, soft, non-tender, non-distended, other (No HSM) Integumentary: normal Extremities: no cyanosis, no edema, pulses normal, no ischemia or petechiae Neurologic: normal mental status, non-focal exam, pupils equal and round, CN II- XII normal Psychiatric: mood appropriate, affect normal CBC and BMP: 03/21/17 04:01 03/21/17 13:27 ABG, PT/INR, D-dimer: PT/INR, D-dimer PT 14.4 Sec. (12.2-14.9) 03/20/17 10:55 INR 1.07 (0.87-1.13) 03/20/17 10:55 Abnormal lab findings: Abnormal Labs 03/20/17 03/20/17 03/20/17 09:38 09:38 09:39 MCV MCH 26 L MCHC 31 L [place] % (Auto) [place] # Seg Neutrophils % 77.1 H Seg Neutrophils # 8.4 H VBG pH Sodium Potassium Chloride Carbon Dioxide BUN Creatinine Glucose POC Glucose Lactic Acid 3.80 H* Calcium Ammonia Total Protein Albumin Salicylates < 0.3 L Acetaminophen 03/20/17 03/20/17 03/20/17 09:39 09:39 09:43 MCV MCH MCHC [place] % (Auto) [place] # Seg Neutrophils % Seg Neutrophils # VBG pH Sodium 133 L Potassium 6.1 H* Chloride Carbon Dioxide 18 L BUN Creatinine 1.7 H Glucose 457 H POC Glucose 402 H Lactic Acid Calcium 7.5 L Ammonia Total Protein 4.9 L Albumin 3.0 L Salicylates Acetaminophen < 10.0 L 03/20/17 03/20/17 03/20/17 10:55 10:55 10:55 MCV MCH MCHC [place] % (Auto) [place] # Seg Neutrophils % Seg Neutrophils # VBG pH 7.194 L* Sodium Potassium Chloride Carbon Dioxide 18 L BUN Creatinine Glucose 417 H POC Glucose Lactic Acid Calcium 7.7 L Ammonia 19.0 L Total Protein Albumin Salicylates Acetaminophen 03/20/17 03/20/17 03/20/17 14:05 15:47 17:27 MCV MCH MCHC [place] % (Auto) [place] # Seg Neutrophils % Seg Neutrophils # VBG pH Sodium Potassium 5.2 H Chloride Carbon Dioxide 18 L 17 L BUN 21 H Creatinine Glucose 317 H 283 H POC Glucose 235 H Lactic Acid Calcium Ammonia Total Protein Albumin Salicylates Acetaminophen 03/20/17 03/20/17 03/20/17 17:38 18:44 19:41 MCV MCH MCHC [place] % (Auto) [place] # Seg Neutrophils % Seg Neutrophils # VBG pH Sodium 136 L Potassium Chloride Carbon Dioxide 17 L 21 L BUN Creatinine Glucose 234 H 130 H POC Glucose 214 H Lactic Acid Calcium Ammonia Total Protein Albumin Salicylates Acetaminophen 03/20/17 03/20/17 03/20/17 19:41 20:06 21:52 MCV MCH MCHC [place] % (Auto) [place] # Seg Neutrophils % Seg Neutrophils # VBG pH Sodium Potassium Chloride 107.6 H Carbon Dioxide 20 L BUN Creatinine Glucose POC Glucose 122 H Lactic Acid 2.50 H* Calcium Ammonia Total Protein Albumin Salicylates Acetaminophen 03/20/17 03/21/17 03/21/17 23:27 04:01 04:01 MCV 82 L MCH 27 L MCHC [place] % (Auto) 13.0 H [place] # 0.9 H Seg Neutrophils % Seg Neutrophils # VBG pH Sodium Potassium Chloride 107.6 H Carbon Dioxide 20 L BUN Creatinine Glucose POC Glucose 115 H Lactic Acid Calcium 8.3 L Ammonia Total Protein Albumin Salicylates Acetaminophen 03/21/17 03/21/17 03/21/17 08:14 11:51 13:27 MCV MCH MCHC [place] % (Auto) [place] # Seg Neutrophils % Seg Neutrophils # VBG pH Sodium Potassium Chloride Carbon Dioxide 21 L BUN Creatinine Glucose 204 H POC Glucose 184 H 252 H Lactic Acid Calcium Ammonia Total Protein Albumin Salicylates Acetaminophen 03/21/17 03/22/17 03/22/17 22:11 08:26 11:26 MCV MCH MCHC [place] % (Auto) [place] # Seg Neutrophils % Seg Neutrophils # VBG pH Sodium Potassium Chloride Carbon Dioxide BUN Creatinine Glucose POC Glucose 172 H 193 H 175 H Lactic Acid Calcium Ammonia Total Protein Albumin Salicylates Acetaminophen 03/22/17 16:30 MCV MCH MCHC [place] % (Auto) [place] # Seg Neutrophils % Seg Neutrophils # VBG pH Sodium Potassium Chloride Carbon Dioxide BUN Creatinine Glucose POC Glucose 147 H Lactic Acid Calcium Ammonia Total Protein Albumin Salicylates Acetaminophen Chest x-ray: image reviewed
[2017-03-22] MEDS: LEVAQUIN 750MG/150ML 750 MG/150 ML BAG IV SCH (19:04)
[2017-03-23] MEDS: FLAGYL 500 MG/100 ML 500 MG/100 ML BAG IV SCH ×2 (02:39→07:00)
[2017-03-23] MEDS: GLUCOTROL PO SCH ×2 (08:47→17:16)
[2017-03-23] MEDS: GLUCOPHAGE PO SCH ×2 (08:47→17:16)
--- NOTE | 2017-03-23 10:08 | Progress Note ---
Assessment and Plan Assessment and plan: Sepsis due to Pneumonia F/U Blood cultures Cont. Aggressive IV fluid resuscitation Stopped IV zosyn and vancomycin due to patient allergic to Zosyn. Started on Levaquin Supportive care DKA/ Diabetes mellitus DKA Resolved Accu-Chek before meals and at bedtime Sliding scale insulin/NovoLog ADA carbohydrate consistent diet Diarrhea. Await C. difficile studies. Cont empiric Flagyl 500 mg IV every 8 hours. DVT Prophylaxis Lovenox Disposition anticipate dischargein a.m. if C. difficile negative and diarrhea improved History Interval history: no new issues overnight Hospitalist Physical - Constitutional Vitals: Temp Pulse Resp BP Pulse Ox 99.1 F 114 H 18 136/87 99 03/23/17 07:46 03/23/17 07:46 03/23/17 07:46 03/23/17 07:46 03/23/17 07:46 General appearance: Present: no acute distress, well-nourished - EENT Eyes: Present: PERRL, EOM intact ENT: hearing intact, clear oral mucosa, dentition normal - Neck Neck: Present: supple, normal ROM - Respiratory Respiratory effort: normal Respiratory: bilateral: CTA - Cardiovascular Rhythm: regular Heart Sounds: Present: S1 & S2. Absent: gallop, rub - Extremities Extremities: no ischemia, No edema, Full ROM - Abdominal General gastrointestinal: soft, non-tender, non-distended, normal bowel sounds - Integumentary Integumentary: Present: clear, warm, dry - Neurologic Neurologic: CNII-XII intact, moves all extremities Results - Labs CBC & Chem 7: 03/21/17 04:01 03/21/17 13:27 Labs: Laboratory Last Values WBC 7.2 K/mm3 (4.5-11.0) 03/21/17 04:01 RBC 4.36 M/mm3 (3.65-5.03) 03/21/17 04:01 Hgb 11.8 gm/dl (11.8-15.2) 03/21/17 04:01 Hct 35.7 % (35.5-45.6) 03/21/17 04:01 MCV 82 fl (84-94) L 03/21/17 04:01 MCH 27 pg (28-32) L 03/21/17 04:01 MCHC 33 % (32-34) 03/21/17 04:01 RDW 13.7 % (13.2-15.2) 03/21/17 04:01 Plt Count 182 K/mm3 (140-440) 03/21/17 04:01 Lymph % (Auto) 23.7 % (13.4-35.0) 03/21/17 04:01 [place] % (Auto) 13.0 % (0.0-7.3) H 03/21/17 04:01 Eos % (Auto) 0.4 % (0.0-4.3) 03/21/17 04:01 Baso % (Auto) 0.6 % (0.0-1.8) 03/21/17 04:01 Lymph # 1.7 K/mm3 (1.2-5.4) 03/21/17 04:01 [place] # 0.9 K/mm3 (0.0-0.8) H 03/21/17 04:01 Eos # 0.0 K/mm3 (0.0-0.4) 03/21/17 04:01 Baso # 0.0 K/mm3 (0.0-0.1) 03/21/17 04:01 Seg Neutrophils % 62.3 % (40.0-70.0) 03/21/17 04:01 Seg Neutrophils # 4.5 K/mm3 (1.8-7.7) 03/21/17 04:01 PT 14.4 Sec. (12.2-14.9) 03/20/17 10:55 INR 1.07 (0.87-1.13) 03/20/17 10:55 APTT 25.7 Sec. (24.2-36.6) 03/20/17 10:55 VBG pH 7.194 (7.320-7.420) L* 03/20/17 10:55 Sodium 140 mmol/L (137-145) 03/21/17 13:27 Potassium 3.8 mmol/L (3.6-5.0) 03/21/17 13:27 Chloride 105.4 mmol/L (98-107) 03/21/17 13:27 Carbon Dioxide 21 mmol/L (22-30) L 03/21/17 13:27 Anion Gap 17 mmol/L 03/21/17 13:27 BUN 13 mg/dL (9-20) 03/21/17 13:27 Creatinine 1.3 mg/dL (0.8-1.5) 03/21/17 13:27 Estimated GFR > 60 ml/min 03/21/17 13:27 BUN/Creatinine Ratio 10 % 03/21/17 13:27 Glucose 204 mg/dL (75-100) H 03/21/17 13:27 POC Glucose 186 (70-105) H 03/23/17 07:54 Ketones Quantitative Small (Negative) 03/20/17 10:55 Lactic Acid 2.50 mmol/L (0.7-2.0) H* 03/20/17 19:41 Calcium 8.4 mg/dL (8.4-10.2) 03/21/17 13:27 Phosphorus 2.50 mg/dL (2.5-4.5) 03/20/17 13:00 Magnesium 1.70 mg/dL (1.7-2.3) 03/20/17 13:00 Total Bilirubin 0.50 mg/dL (0.1-1.2) 03/20/17 09:39 AST 37 units/L (5-40) 03/20/17 09:39 ALT 48 units/L (7-56) 03/20/17 09:39 Alkaline Phosphatase 54 units/L (35-129) 03/20/17 09:39 Ammonia 19.0 umol/L (25-60) L 03/20/17 10:55 Total Creatine Kinase 104 units/L (55-170) 03/20/17 10:55 CK-MB (CK-2) 1.5 ng/mL (0.0-4.0) 03/20/17 10:55 CK-MB (CK-2) Rel Index 1.4 (0-4) 03/20/17 10:55 Troponin T < 0.010 ng/mL (0.00-0.029) 03/20/17 10:55 C-Reactive Protein 0.20 mg/dL (0.00-1.30) 03/20/17 19:41 NT-Pro-B Natriuret Pep 59.79 pg/mL (0-900) 03/20/17 10:55 Total Protein 4.9 g/dL (6.3-8.2) L 03/20/17 09:39 Albumin 3.0 g/dL (3.9-5) L 03/20/17 09:39 Albumin/Globulin Ratio 1.6 % 03/20/17 09:39 Lipase 36 units/L (13-60) 03/20/17 11:08 TSH 1.930 mlU/mL (0.270-4.200) 03/20/17 09:38 Urine Color Yellow (Yellow) 03/20/17 11:56 Urine Turbidity Clear (Clear) 03/20/17 11:56 Urine pH 5.0 (5.0-7.0) 03/20/17 11:56 Ur Specific [place] 1.017 (1.003-1.030) 03/20/17 11:56 Urine Protein <15 mg/dl mg/dL (Negative) 03/20/17 11:56 Urine Glucose (UA) >=500 mg/dL (Negative) 03/20/17 11:56 Urine Ketones Tr mg/dL (Negative) 03/20/17 11:56 Urine Blood Neg (Negative) 03/20/17 11:56 Urine Nitrite Neg (Negative) 03/20/17 11:56 Urine Bilirubin Neg (Negative) 03/20/17 11:56 Urine Urobilinogen < 2.0 mg/dL (<2.0) 03/20/17 11:56 Ur Leukocyte Esterase Neg (Negative) 03/20/17 11:56 Urine WBC (Auto) 1.0 /HPF (0.0-6.0) 03/20/17 11:56 Urine RBC (Auto) 3.0 /HPF (0.0-6.0) 03/20/17 11:56 U Epithel Cells (Auto) < 1.0 /HPF (0-13.0) 03/20/17 11:56 Urine Mucus Few /HPF 03/20/17 11:56 Salicylates < 0.3 mg/dL (2.8-20.0) L 03/20/17 09:38 Urine Opiates Screen Presumptive negative 03/20/17 11:56 Urine Methadone Screen Presumptive negative 03/20/17 11:56 Acetaminophen < 10.0 ug/mL (10.0-30.0) L 03/20/17 09:39 Ur Barbiturates Screen Presumptive negative 03/20/17 11:56 Ur Phencyclidine Scrn Presumptive negative 03/20/17 11:56 Ur Amphetamines Screen Presumptive negative 03/20/17 11:56 U Benzodiazepines Scrn Presumptive negative 03/20/17 11:56 Urine Cocaine Screen Presumptive negative 03/20/17 11:56 U Marijuana (THC) Screen Presumptive negative 03/20/17 11:56 Drugs of Abuse Note Disclamer 03/20/17 11:56 Plasma/Serum Alcohol < 0.01 gm% (0-0.07) 03/20/17 09:39
[2017-03-23] MEDS: HALFPRIN EC PO SCH (13:29)
[2017-03-23] MEDS: LOVENOX SUB-Q SCH (13:29)
[2017-03-23] MEDS: NEURONTIN PO SCH (13:30)
[2017-03-23] MEDS: FLAGYL PO SCH (13:34)
--- NOTE | 2017-03-23 20:36 | Progress Note ---
Subjective Date of service: 03/23/17 Objective Vital Signs - 12hr 03/23/17 03/23/17 15:32 19:49 Temperature 98.8 F 98.9 F Pulse Rate 98 H 109 H Respiratory 18 18 Rate Blood Pressure 142/85 138/75 O2 Sat by Pulse 100 100 Oximetry Constitutional: no acute distress, alert Eyes: non-icteric ENT: oropharynx moist Ascultation: Right: rhonchi Cardiovascular: regular rate and rhythm Gastrointestinal: normoactive bowel sounds, soft, non-tender Integumentary: normal Extremities: no cyanosis, no edema Neurologic: normal mental status, non-focal exam, pupils equal and round, CN II- XII normal Psychiatric: mood appropriate CBC and BMP: 03/21/17 04:01 03/21/17 13:27 ABG, PT/INR, D-dimer: PT/INR, D-dimer PT 14.4 Sec. (12.2-14.9) 03/20/17 10:55 INR 1.07 (0.87-1.13) 03/20/17 10:55 Abnormal lab findings: Abnormal Labs 03/20/17 03/20/17 03/20/17 09:38 09:38 09:39 MCV MCH 26 L MCHC 31 L [place] % (Auto) [place] # Seg Neutrophils % 77.1 H Seg Neutrophils # 8.4 H VBG pH Sodium Potassium Chloride Carbon Dioxide BUN Creatinine Glucose POC Glucose Lactic Acid 3.80 H* Calcium Ammonia Total Protein Albumin Salicylates < 0.3 L Acetaminophen 03/20/17 03/20/17 03/20/17 09:39 09:39 09:43 MCV MCH MCHC [place] % (Auto) [place] # Seg Neutrophils % Seg Neutrophils # VBG pH Sodium 133 L Potassium 6.1 H* Chloride Carbon Dioxide 18 L BUN Creatinine 1.7 H Glucose 457 H POC Glucose 402 H Lactic Acid Calcium 7.5 L Ammonia Total Protein 4.9 L Albumin 3.0 L Salicylates Acetaminophen < 10.0 L 03/20/17 03/20/17 03/20/17 10:55 10:55 10:55 MCV MCH MCHC [place] % (Auto) [place] # Seg Neutrophils % Seg Neutrophils # VBG pH 7.194 L* Sodium Potassium Chloride Carbon Dioxide 18 L BUN Creatinine Glucose 417 H POC Glucose Lactic Acid Calcium 7.7 L Ammonia 19.0 L Total Protein Albumin Salicylates Acetaminophen 03/20/17 03/20/17 03/20/17 14:05 15:47 17:27 MCV MCH MCHC [place] % (Auto) [place] # Seg Neutrophils % Seg Neutrophils # VBG pH Sodium Potassium 5.2 H Chloride Carbon Dioxide 18 L 17 L BUN 21 H Creatinine Glucose 317 H 283 H POC Glucose 235 H Lactic Acid Calcium Ammonia Total Protein Albumin Salicylates Acetaminophen 03/20/17 03/20/17 03/20/17 17:38 18:44 19:41 MCV MCH MCHC [place] % (Auto) [place] # Seg Neutrophils % Seg Neutrophils # VBG pH Sodium 136 L Potassium Chloride Carbon Dioxide 17 L 21 L BUN Creatinine Glucose 234 H 130 H POC Glucose 214 H Lactic Acid Calcium Ammonia Total Protein Albumin Salicylates Acetaminophen 03/20/17 03/20/17 03/20/17 19:41 20:06 21:52 MCV MCH MCHC [place] % (Auto) [place] # Seg Neutrophils % Seg Neutrophils # VBG pH Sodium Potassium Chloride 107.6 H Carbon Dioxide 20 L BUN Creatinine Glucose POC Glucose 122 H Lactic Acid 2.50 H* Calcium Ammonia Total Protein Albumin Salicylates Acetaminophen 03/20/17 03/21/17 03/21/17 23:27 04:01 04:01 MCV 82 L MCH 27 L MCHC [place] % (Auto) 13.0 H [place] # 0.9 H Seg Neutrophils % Seg Neutrophils # VBG pH Sodium Potassium Chloride 107.6 H Carbon Dioxide 20 L BUN Creatinine Glucose POC Glucose 115 H Lactic Acid Calcium 8.3 L Ammonia Total Protein Albumin Salicylates Acetaminophen 03/21/17 03/21/17 03/21/17 08:14 11:51 13:27 MCV MCH MCHC [place] % (Auto) [place] # Seg Neutrophils % Seg Neutrophils # VBG pH Sodium Potassium Chloride Carbon Dioxide 21 L BUN Creatinine Glucose 204 H POC Glucose 184 H 252 H Lactic Acid Calcium Ammonia Total Protein Albumin Salicylates Acetaminophen 03/21/17 03/22/17 03/22/17 22:11 08:26 11:26 MCV MCH MCHC [place] % (Auto) [place] # Seg Neutrophils % Seg Neutrophils # VBG pH Sodium Potassium Chloride Carbon Dioxide BUN Creatinine Glucose POC Glucose 172 H 193 H 175 H Lactic Acid Calcium Ammonia Total Protein Albumin Salicylates Acetaminophen 03/22/17 03/22/17 03/23/17 16:30 22:01 07:54 MCV MCH MCHC [place] % (Auto) [place] # Seg Neutrophils % Seg Neutrophils # VBG pH Sodium Potassium Chloride Carbon Dioxide BUN Creatinine Glucose POC Glucose 147 H 142 H 186 H Lactic Acid Calcium Ammonia Total Protein Albumin Salicylates Acetaminophen 03/23/17 12:08 MCV MCH MCHC [place] % (Auto) [place] # Seg Neutrophils % Seg Neutrophils # VBG pH Sodium Potassium Chloride Carbon Dioxide BUN Creatinine Glucose POC Glucose 199 H Lactic Acid Calcium Ammonia Total Protein Albumin Salicylates Acetaminophen
[2017-03-23] MEDS ORDERED: LEVAQUIN PO SCH (22:00)
[2017-03-24] MEDS: FLAGYL PO SCH ×3 (00:12→13:44)
[2017-03-24] MEDS: PRAVACHOL PO SCH (00:12)
[2017-03-24] MEDS: ZOSYN/NS 4.5GM/100ML 4.5 GM/100 ML VIAL IV SCH (03:19)
--- NOTE | 2017-03-24 07:56 | Vascular Lab Report ---
CAROTID DUPLEX STUDY: RIGHT PSVEDV CCA [id number] CCA [id number] ICA PROX:[id number] ICA MID:[id number] ICA DIST:7123 ECA: 115 VERT: 64 19 LEFT PSVEDV CCA PROX:[id number] CCA DIST:9621 ICA PROX:8323 ICA MID:7826 ICA DIST:7630 ECA: 123 VERT: 59 19 REASON FOR EXAM: Carotid artery stenosis/syncope/acute mental change.. COMMENTS ON THE RIGHT: Doppler frequency analysis is consistent with 16 to 49 percent diameter reduction of the internal carotid artery. Minimal amount of plaque is seen. The common carotid artery is patent. The external carotid artery is patent. The vertebral artery has antegrade flow. COMMENTS ON THE LEFT: Doppler frequency analysis is consistent with 16 to 49 percent diameter reduction of the internal carotid artery. Minimal amount of plaque is seen. The common carotid artery is patent. The external carotid artery is patent. The vertebral artery has antegrade flow. IMPRESSION: Less than 50% diameter reduction in the internal carotid arteries bilaterally. Consider repeat carotid artery duplex in 12 months.
[2017-03-24] MEDS: LOVENOX SUB-Q SCH (09:49)
[2017-03-24] MEDS: GLUCOPHAGE PO SCH (09:50)
[2017-03-24] MEDS: NEURONTIN PO SCH (09:50)
[2017-03-24] MEDS: HALFPRIN EC PO SCH (09:50)
[2017-03-24] MEDS: GLUCOTROL PO SCH (09:50)
--- NOTE | 2017-03-24 12:07 | Discharge Summary ---
Providers - Providers Date of Admission: 03/20/17 16:43 Date of discharge: 03/24/17 Attending physician: ALMA DELIA BERRIOS 03/20/17 13:36 Consult to Case Management [CONS] Routine Services Needed at Discharge: Other Notified:: yes Was contact made?: Yes 03/20/17 13:37 Consult to Physician [CONS] Urgent Consulting Provider: STEPHANY MANSFIELD Reason For Exam: DKA Place consult to:: Dr. Mansfield Notified:: yes 03/20/17 23:28 Consult to Dietitian/Nutrition [CONS] Routine Physician Instructions: Reason For Exam: Reason for Consult: Diet education Primary care physician: FLY FRAME TENDER Hospitalization Condition: Good Hospital course: Patient is 66 yo with dementia, diabetes, hypertension. He presented with generalized weakness, elevated glucose level. In Emergency Department. Chest X ray showed bilateral infiltrates , labs show diabetic ketoacidosis. He was started on Zosyn and Vancomycin for sepsis due to pneumonia. He was also started on Insulin drip for diabetic ketoacidosis. Blood glucose improved so Insulin drip was discontinued. Patient was evaluated by Scow Derrick Operator. Patient had allergic reaction to Zosyn so was discontinued and he was started on Levaquin. He improved in few days and was discharged homke on 03/24/17 on Levaquin. Total time spent on discharge, 32 mins Disposition: DC- TO HOME OR SELFCARE - Discharge Diagnoses (1) Pneumonia of both lower lobes Status: Acute (2) DKA (diabetic ketoacidoses) Status: Acute Qualifiers: Diabetes mellitus type: type 1 Diabetes mellitus complication detail: without coma Qualified Code(s): E10.10 - Type 1 diabetes mellitus with ketoacidosis without coma (3) Sepsis Status: Acute (4) Dementia Status: Chronic (5) HTN (hypertension), benign Status: Chronic (6) Hyperlipidemia Status: Chronic Core Measure Documentation - Palliative Care Palliative Care/ Comfort Measures: Not Applicable - Core Measures Any of the following diagnoses?: none Exam - Constitutional Vitals: Temp Pulse Resp BP Pulse Ox 98.8 F 95 H 18 134/80 100 03/24/17 07:09 03/24/17 07:10 03/24/17 07:09 03/24/17 07:10 03/24/17 07:10 General appearance: Present: no acute distress - EENT ENT: hearing intact - Respiratory Respiratory: bilateral: CTA - Cardiovascular Rhythm: regular Heart Sounds: Present: S1 & S2 - Extremities Extremities: No edema Plan Activity: no restrictions Diet: low fat, low cholesterol, low salt, diabetic Additional Instructions: 1.Follow up with PCP in 3-5 days. 2.Follow up with Dr. Trujillo in 1 week Follow up with: PRIMARY CARE, [Primary Care Provider] - 3-5 Days Prescriptions: Levofloxacin [Levaquin TAB] 750 mg PO Q24H #2 tablet
[2017-03-24 14:43] VITALS: BP 130/78
== END 2017-03-24 14:55 | disposition home or self-care (01) | DRG 871 ==
LOC: ED 08:42 → CC1 16:43 → 2B-ACE 03-21 00:42
PROVIDERS: ADMIT Internal Medicine; ATTEND Internal Medicine
DX: A41.9 Sepsis, unspecified organism (principal); J18.9 Pneumonia, unspecified organism; E11.10 Type 2 diabetes mellitus with ketoacidosis without coma; E87.5 Hyperkalemia; I10 Essential (primary) hypertension; E11.51 Type 2 diabetes mellitus with diabetic peripheral angiopathy without gangrene; F03.90 Unspecified dementia, unspecified severity, without behavioral disturbance, psychotic disturbance, mood disturbance, and anxiety; E11.65 Type 2 diabetes mellitus with hyperglycemia; Z82.49 Family history of ischemic heart disease and other diseases of the circulatory system; Z87.891 Personal history of nicotine dependence; Z86.73 Personal history of transient ischemic attack (TIA), and cerebral infarction without residual deficits
CPT/HCPCS: 36415; 70450; 71010; 74176; 80048; 80053; 80307; 80320; 81001; 82010; 82140; 82550; 82553; 82805; 82962; 83690; 83735; 83880; 84100; 84443; 84484; 85007; 85025; 85610; 85730; 86140; 87040; 87045; 87086; 87493; 93005; 93010; 93306; 93880; 96361; 96365; 96366; 96367; 96375; A9270-GY; G0480; J0456; J1200; J1650; J1815; J1956; J2543; J3370; J7030; J7050